=== PATIENT | female | born 1940 | race Caucasian/White ===

== ENCOUNTER 2017-11-11 10:12 | Outpatient (CLI) | payer MEDICARE, OTHER, SELFPAY ==
[2017-11-11 12:23] LABS: Anion Gap 3.5 mmol/L (3-11); BUN 19 mg/dL (7-18); CO2 31.5 mmol/L (21.0-32.0); CREATININE 0.54 mg/dL (0.55-1.02); Calcium 9.1 mg/dL (8.5-10.1); Chloride 107 mmol/L (98-107); Glucose 83 mg/dL (70-100); Potassium 4.4 mmol/L (3.5-5.1); Sodium 142 mmol/L (136-145); TSH 0.05 uIU/mL (0.358-3.74)
== END 2017-11-11 10:32 ==
LOC: LBO 12:09 → LOS 12:45
PROVIDERS: PCP Family Medicine; Visit Provider Family Medicine
DX: I10 Essential (primary) hypertension (principal); E03.9 Hypothyroidism, unspecified
CPT/HCPCS: 36415; 80048; 84443

== ENCOUNTER 2018-07-11 02:45 | Outpatient (CLI) | payer MEDICARE, OTHER, SELFPAY ==
[2018-07-11 13:08] LABS: Anion Gap 9.8 mmol/L (3-11); BUN 25 mg/dL (7-18); CO2 28.2 mmol/L (21.0-32.0); Calcium 9.6 mg/dL (8.5-10.1); Chloride 105 mmol/L (98-107); Glucose 82 mg/dL (70-100); Potassium 4.3 mmol/L (3.5-5.1); Sodium 143 mmol/L (136-145); TSH 0.15 uIU/mL (0.358-3.74)
== END 2018-07-11 03:05 ==
PROVIDERS: PCP Family Medicine; Visit Provider Family Medicine
DX: I10 Essential (primary) hypertension (principal); E03.9 Hypothyroidism, unspecified
CPT/HCPCS: 36415; 80048; 84443

== ENCOUNTER → 2018-09-19 10:01 | Outpatient (BNVA) | payer MEDICARE, OTHER, SELFPAY | PROVIDERS: PCP Family Medicine; Referring Provider Family Medicine; Visit Provider Psychiatry & Neurology Neurology | DX: G35 Multiple sclerosis (principal); R41.3 Other amnesia; I10 Essential (primary) hypertension | CPT/HCPCS: 99205; 99214 ==

== ENCOUNTER 2018-09-28 06:57 | Outpatient (CLI) | payer MEDICARE, OTHER, SELFPAY ==
--- NOTE | 2018-09-28 15:15 | DI.MRI_ITS ---
SYMPTOM/DIAGNOSIS: MEMORY LOSS, NEW LT HH, G35. MS MRI BRAIN: Comparison is made with head CT 05 June 2008 T2 sagittal, T1, T2, FLAIR, Diffusion and gradient echo axial and Flair sagittal sequences were performed. There is moderate to severe diffuse cerebral atrophy. There are multiple high signal foci in the periventricular white matter which could be secondary to multiple sclerosis vs small vessel changes. A larger lesion is seen posterior to the left lateral ventricle is more suspicious for multiple sclerosis plaque. Several of the foci show restricted diffusion, most apparent in the right frontal lobe. IMPRESSION: Numerous small bilateral periventricular and white matter lesions is consistent with the patient's history of multiple sclerosis.
== END 2018-09-28 07:17 ==
PROVIDERS: PCP Family Medicine; Visit Provider Psychiatry & Neurology Neurology
DX: G35 Multiple sclerosis (principal); R41.3 Other amnesia
CPT/HCPCS: 70551

== ENCOUNTER 2019-05-03 03:31 | Outpatient (CLI) | payer MEDICARE, OTHER, SELFPAY ==
[2019-05-04 16:08] LABS: T3,Free 4.5 pg/mL (2.8-5.3)
== END 2019-05-03 03:51 ==
PROVIDERS: PCP Family Medicine; Visit Provider Family Medicine
DX: E03.9 Hypothyroidism, unspecified (principal); I10 Essential (primary) hypertension
CPT/HCPCS: 36415; 84481

== ENCOUNTER 2020-01-28 03:34 | Outpatient (CLI) | payer MEDICARE, OTHER, SELFPAY ==
[2020-01-28 14:08] LABS: Anion Gap 5.1 mmol/L (3-11); BUN 22 mg/dL (7-18); CO2 31.9 mmol/L (21.0-32.0); CREATININE 0.64 mg/dL (0.55-1.02); Calcium 9.4 mg/dL (8.5-10.1); Chloride 106 mmol/L (98-107); Glucose 107 mg/dL (74-106); Potassium 3.9 mmol/L (3.5-5.1); Sodium 143 mmol/L (136-145)
[2020-01-28 14:20] LABS: TSH (W/Ref FT4) 0.01 uIU/mL (0.36-3.74)
== END 2020-01-28 03:54 ==
PROVIDERS: Family Medicine; PCP Family Medicine; Visit Provider Family Medicine
DX: E03.9 Hypothyroidism, unspecified (principal); I10 Essential (primary) hypertension
CPT/HCPCS: 36415; 80048; 84439; 84443

== ENCOUNTER 2021-01-28 11:38 | Inpatient (IN) | payer MEDICARE, OTHER, SELFPAY ==
[2021-01-28] VITALS (15 sets, daily range): BP systolic 139–166; BP diastolic 65–87; PULSE 72–86; RESP 14–20; TEMP 36.3–37.2; O2SAT 97–99
--- NOTE | 2021-01-28 12:00 | DI.RAD_ITS ---
Exam(s) XR PORTABLE CHEST AP EXAM: XR PORTABLE CHEST AP CLINICAL HISTORY: cough TECHNIQUE: COMPARISON: CR CHEST 2 VIEWS PA,LAT from 08/25/2016 FINDINGS: There is a right convex thoracic scoliosis. Cardiac size is at the upper limits normal. Lungs appea r grossly clear. No pleural effusion seen on this frontal film. IMPRESSION: No evidence of acute process. RADIATION DOSE DELIVERED: Total DLP
[2021-01-28 12:20] LABS: Abs Immature Grans 0.03 10^3/uL (0.0-0.06); Absolute Basophil Count 0.03 10^3/uL (0.0-0.2); Absolute Eosinophil Count 0.02 10^3/uL (0.0-0.7); Absolute Lymphocyte Count 0.65 10^3/uL (1.2-3.4); Absolute Neutrophil Count 8.95 10^3/uL (1.2-6.7); Basophils % 0.3; Eosinophils % 0.2; HCT 43.3 % (36.0-46.0); Immature Grans % 0.3; Lymphocytes % 6.3; MCH 29.1 pg (27.0-33.0); MCV 96.9 fL (80-95); MPV 11.8 fL (8.0-11.0); Monocytes % 6.7; Neutrophils % 86.2; Nucleated RBC 0 %; Platelet Count 166 10^3/uL (130-400); RBC 4.47 10^6/uL (3.93-5.22); RDW 13.9 % (11.7-14.6); RDW-SD 50.3 fL; WBC 10.38 10^3/uL (4.4-10.8)
--- NOTE | 2021-01-28 12:27 | ED.GENADUL_ITS ---
Discharge Plan Disposition Patient Disposition: [facility] INPATIENT Condition: Serious Discharge Details Chief Complaint: RespSymp Clinical Impression: Multiple sclerosis exacerbation Primary Care Provider: Karl Laird ED Provider: Alvaro La Home Meds and New Rx's Prescriptions: No Action aspirin [Aspir-81] 81 MG tablet,delayed release (DR/EC) 81 mg PO DAILY RF: 0 escitalopram oxalate [Lexapro] 10 mg tablet 10 mg PO DAILY Qty: 90 RF: 4 levothyroxine 50 mcg tablet 50 mcg PO DAILY Qty: 90 RF: 4 trazodone 50 mg tablet 25 - 50 mg PO QHS PRN (Reason: insomnia) Qty: 30 RF: 1 Medical Decision Making 1245 --80-year-old female with history of MS, chronic dysphagia, here with increased respiratory secretions and respiratory symptoms for the past week. Patient has poor respiratory effort. Concern for progression of MS. Consider pneumonia. Plan to check chest x-ray. --Chest x-ray was reviewed and interpreted by radiology: No acute pulmonary disease. Labs reviewed and nondiagnostic. Considered acute neurologic hemorrhage. CT head interpreted radiology is negative. Lengthy conversation with the patient's son about treatment plan. He initially was interested in taking his mother home but is now agreeable to admission for IV steroid treatment of likely MS flare. Initial dose of 1000 mg methylprednisolone was administered in the ED. I called and spoke with Dr. Simon, on-call hospitalist, discussed ED presentation course, he will admit the patient. Care transitioned to hospitalist service HPI General Mode of arrival: ambulatory . Date/Time Provider Initiated Documentation: 01/28/21 11:53 . Limitations to Documentation: altered mental status . Information obtained by: family . HPI Narrative: 80yo f with history of multiple sclerosis, physical deconditioning, dysphagia, hypertension, here with her son with concern for respiratory illness. Patient unable to provide history. Son notes respiratory symptoms for the past 3 days. Chronic dysphagia with difficulty swallowing and speaking. Son notes congestion and difficulty handling secretions. He is concerned about potential pneumonia. She does not have much respiratory effort or ability to cough. She notes associated increased fatigue and lethargy. She is fully vaccinated for Covid and received boosters on Tuesday. Related Data Home Medications Medication Instructions Recorded Confirmed aspirin [Aspir-81] 81 mg PO DAILY tab-cap 05/11/12 01/28/21 escitalopram oxalate 10 mg tablet 10 mg PO DAILY #90 tab-cap 09/24/20 01/28/21 levothyroxine 50 mcg tablet 50 mcg PO DAILY #90 tab-cap 10/27/20 01/28/21 trazodone 50 mg tablet 25 - 50 mg PO QHS PRN #30 tab 12/09/20 01/28/21 Previous Rx's Medication Instructions Recorded escitalopram oxalate 10 mg tablet 10 mg PO DAILY #90 tab-cap 09/24/20 levothyroxine 50 mcg tablet 50 mcg PO DAILY #90 tab-cap 10/27/20 trazodone 50 mg tablet 25 - 50 mg PO QHS PRN #30 tab 12/09/20 Allergies Allergy/AdvReac Type Severity Reaction Status Date / Time No Known Allergies Allergy Verified 01/28/21 11:54 General Stated Complaint: RespSymp DAYANARA: 3 Review of Systems Unobtainable due to mental status Constitutional Constitutional: Reports fatigue ENT Ears, Nose, Mouth, and Throat: Reports as per HPI Respiratory Respiratory: Reports as per HPI Endocrine Endocrine: Reports fatigue [facility] Active Problem List Pressure sore of hip, right, unstageable (Acute) Physical deconditioning (Acute) Abnormal auditory perception (Acute) Sensory hearing loss, bilateral (Acute) Multiple sclerosis (Acute) Dysphagia, neurologic (Acute) Hypothyroidism (Acute) Essential hypertension (Acute 03/19/13) Polyp of colon (Acute) History of blood transfusion (Acute) Depressive disorder (Acute) Memory loss (Acute) Medical History Atelectasis of left lung Cerumen impaction Choking due to foreign body Surgical History S/P neck surgery, follow-up exam Total replacement of hip (~09/2010) transfusion (~1992) Family History Mother , 93 Essential hypertension Father , 96 No problems noted. Maternal Grandfather , 80 No problems noted. Paternal Grandfather , 80 No problems noted. Maternal Grandmother , 92 Cancer Paternal Grandmother , 85 No problems noted. Son Heart disease Son No problems noted. Son No problems noted. Brother , age 74 No problems noted. Social History Smoking/Tobacco Use Status: Former Tobacco Use Quit Date: 03/07/1959 Tobacco: How many years used: 2 Smoking risk assessment performed?: Yes Alcohol Intake: current Alcohol Intake frequency: 0-2 drinks per day Alcohol type: beer and wine Drug use: Never Substance use type: does not use Counseling provided: none Caregiver/Support person: Yes Household members: spouse Communication Needs: Corrective Lenses Do you need help understanding health information?: Rarely Pets and animals: Yes Sexually active: No Do you think of yourself as: straight/heterosexual Current gender identity: female and decline to answer What is your relationship status?: How often do you talk on the phone with friends or family?: once per week How often do you get together with friends or relatives?: decline to answer How often do you attend mu-ism or jain services?: decline to answer Do you belong to any clubs or organized social groups?: decline to answer Panel score (0-1 are the most socially isolated patients): 1 What type of physical activity do you participate in: decline to answer Duration: decline to answer Frequency: decline to answer Arline/Church: No preference Special arline needs: No Seatbelt use: always Helmet use: No Drive intox or ride w/intox 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 Do you feel safe in your relationship?: Yes Exam Const General: no acute distress Nutritional Appearance: cachectic HENMT Head: atraumatic Mouth: moist mucous membranes Eyes Conjunctivae: normal conjunctivae Sclera: normal sclerae Neck Neck: trachea midline and supple Resp Effort & Inspection: no cough and decreased respiratory effort Auscultation: rhonchi Cardio Jugular venous pressure: no JVD Rate: regular rate and not tachycardic Rhythm: regular rhythm GI Palpation: soft, not firm, no guarding, no masses, not rigid and nontender Skin General skin exam: no rashes or lesions noted Neuro General: not alert, patient awake and tone normal Cranial Nerves: individual cranial nerve findings Cognition: abnormal cognition (lethargy) Other: Unable to elevate palate, generally weak Extrem General: no edema Psych Appearance: grossly normal Mental Status: mental status grossly normal Course Vital Signs Vital signs: Vital Signs Temperature 37.2 C 01/28/21 11:50 Pulse 76 01/28/21 11:50 Respiratory Rate 16 01/28/21 11:50 Blood Pressure 139/65 01/28/21 11:50 Pulse Oximetry 99 01/28/21 11:50 Temperature 37.2 C 01/28/21 11:50 Temperature Source Oral 01/28/21 11:50 Pulse 76 01/28/21 11:50 Respiratory Rate 16 01/28/21 11:50 Respiratory Effort Non-Labored 01/28/21 11:55 Respiratory Depth Normal 01/28/21 11:55 Blood Pressure 139/65 01/28/21 11:50 Blood Pressure Position Sitting 01/28/21 11:50 Pulse Oximetry 99 01/28/21 11:50 Oxygen Delivery Method Room Air 01/28/21 11:50 Oxygen Flow Rate 0 01/28/21 11:50 Lab/Test Results Lab/Test Results: 01/28/21 11:58 Blood Blood Culture - Pending 01/28/21 11:58 Blood Blood Culture - Pending Laboratory Tests Range/Units 01/28/21 12:10 WBC (4.4-10.8) 10^3/uL 10.38 RBC (3.93-5.22) 10^6/uL 4.47 Hgb (11.2-15.7) g/dL 13.0 Hct (36.0-46.0) % 43.3 MCV (80-95) fL 96.9 H MCH (27.0-33.0) pg 29.1 MCHC (32.0-36.0) % 30.0 L RDW (11.7-14.6) % 13.9 Plt Count (130-400) 10^3/uL 166 MPV (8.0-11.0) fL 11.8 H Immature Gran % 0.3 Neutrophils % 86.2 Lymphocytes % 6.3 Monocytes % 6.7 Eosinophils % 0.2 Basophils % 0.3 Nucleated RBC % % 0 Absolute Neutrophils (1.2-6.7) 10^3/uL 8.95 H Absolute Lymphocytes (1.2-3.4) 10^3/uL 0.65 L Absolute Monocytes (0.1-0.8) 10^3/uL 0.70 Absolute Eosinophils (0.0-0.7) 10^3/uL 0.02 Absolute Basophils (0.0-0.2) 10^3/uL 0.03 PAWSS Have you Been Recently Intoxicated or Drunk Within the Last 30 days?: No Have you Ever Experienced Previous Episodes of Alcohol Withdrawal?: No Have you ever Experienced Withdrawal Seizures?: No Have you ever Experienced Delirium Tremens(DT)s?: No Have you ever undergone Alcohol Rehabilitation Treatment (i.e, inpt ot outpatient treatment programs)?: No Have you ever Experienced Blackouts?: No Have you ever Combined Alcohol with other Downers within the last 90 days?: No Have you ever Combined Alcohol with any other Substance of Abuse during the last 90 days?: No Positive Blood Alcohol level on Presentation? [PCS.BAL]: No Evidence of Increased Autonomic Activity (i.e. HR>120, tremor, sweating, agitation, nausea)?: No Result: 0
[2021-01-28 12:41] LABS: ALT 51 U/L (14-59); AST 26 U/L (15-37); Albumin 3.3 g/dL (3.4-5.0); Alkaline Phosphatase 184 U/L (46-116); BUN 21 mg/dL (7-18); Bilirubin, Total 0.8 mg/dL (0.2-1.0); CREATININE 0.5 mg/dL (0.55-1.02); Chloride 103 mmol/L (98-107); Glucose 118 mg/dL (74-106); Potassium 3.7 mmol/L (3.5-5.1); Sodium 140 mmol/L (136-145); Total Protein 7.4 g/dL (6.4-8.2); Troponin I < 0.05 ng/mL (<0.06)
[2021-01-28 12:50] LABS: Bilirubin Negative (Negative); Blood Moderate (Negative); Clarity Cloudy (Clear); Glucose Negative (Negative); Ketones 15 mg/dL (Negative); Leukocyte Esterase Negative (Negative); Nitrite Negative (Negative); Specific Gravity >= 1.030 (1.005-1.025); pH 6.5 (5-8)
[2021-01-28 12:58] LABS: Bacteria Many HPF (Negative); C & S Indicated? No/Sq. Contamination; Casts Negative LPF (Negative); Crystals Negative HPF (Negative); Epithelial Cells Many HPF (Negative); Mucus Trace (Negative); WBC 0-2 HPF (0-5)
--- NOTE | 2021-01-28 14:30 | DI.CT_ITS ---
Exam(s) CT HEAD WO EXAM: CT HEAD WO CLINICAL HISTORY: altered mentation. TECHNIQUE: Imaging Protocol: Axial computed tomography images with coronal and sagittal reformatted images were created and reviewed COMPARISON: CT FACIAL WITHOUT CONTRAST from 06/05/2008 FINDINGS: There is moderate generalized cerebral atrophy and there are patchy areas of decreased attenuation i n periventricular white matter consistent with microvascular ischemic changes. No evidence of acute intracranial hemorrhage, mass effect, or midline shift. The orbital structures are unremarkable. The temporal bone structures appear intact. Calvarium: Normal. Visualized Paranasal sinuses/Mastoids: Clear. IMPRESSION: No evidence of acute intracranial process.. RADIATION DOSE DELIVERED: 640.6mGy.cm Total DLP 640.6mGy.cm Total DLP 33.31mGy CTDIvol DATA REPOSITORY: All CT scans at this facility are submitted to the National Radiology Data Registry (NRDR) Dose Index Registry (DIR) with the [employer] (ACR). RADIATION OPTIMIZATION: All CT scans at this facility use at least one of these dose optimization te chniques: automated exposure control; mA and/or kV adjustment per patient size (includes targeted exa ms where dose is matched to clinical indication); or iterative reconstruction.
[2021-01-28 14:50] LABS: Source Nasal/Nares
[2021-01-28 16:37] LABS: TSH < 0.01 uIU/mL (0.36-3.74)
--- NOTE | 2021-01-28 17:00 | W.SPSTE ---
Date of service: 01/28/21 Time of Service: 17:00 Subjective Patient referred for Clinical Swallow Evaluation from Dr. iSmon given MS exacerbation with known baseline chronic dysphagia. Patient received alert/awake agreeable to evaluation, unable to communicate wants/needs effectively; unable to demonstrate comprehension of recommendations for safe p.o. intake upon discharge once deemed medically stable. Objective Objective Precautions: Fall, aspiration HPI: Pt is a 80 year old F admitted with suspected MS flare/exacerbation, increased respiratory congestion and poor secretion management as well as increased fatigue. At baseline patient with chronic dysphagia and dysarthria. Medical history also significant for multiple sclerosis, physical deconditioning, dysphagia, memory loss. Active Problem List Pressure sore of hip, right, unstageable (Acute) Physical deconditioning (Acute) Abnormal auditory perception (Acute) Sensory hearing loss, bilateral (Acute) Multiple sclerosis (Acute) Dysphagia, neurologic (Acute) Hypothyroidism (Acute) Essential hypertension (Acute 03/19/13) Polyp of colon (Acute) History of blood transfusion (Acute) Depressive disorder (Acute) Memory loss (Acute) Medical History Atelectasis of left lung Cerumen impaction Choking due to foreign body Surgical History S/P neck surgery, follow-up exam Total replacement of hip (~09/2010) transfusion (~1992) Social History/Home Situation: Pt lives with spouse. Son is involved in her care. Predisposing dysphagia risk factors: MS Clinical signs of possible chronic dysphagia: suspect poor PO intake Precipitating dysphagia risk factors / triggering event: increased respiratory congestion, difficulty managing secretions, increased weakness, suspected MS flare. EXAM: Temp: 97.3 F Sp02: 97% RR: 18 / room air Cranial nerve exam / Oral Motor: Patient largely unable to follow instructions ? very limited exam. Improved with demonstration (imitating). Noting the following: Intact dentition and good oral care appearance. Palate elevates symmetrically to phonation. Unable to elicit volitional cough or swallow. Language: Unable to follow many instructions but does follow simple instructions. Improves with visual and written reinforcement. Consistently able to respond with Yes/No board, reads single words. Hearing: Suspect NATIVE. I can't understand Mental Status: Unable to assess given limited verbal expression/dysarthria and poor auditory comprehension/NATIVE. Speech: dysarthric ? very strained/spaastic voice quality, imprecise articulation, monotone/loudness. Short breath groups. Slowed speech. ~40% intelligible, especially worse at end of utterance (respiratory support and articulatory fatigue). Food items tested: [ ] None. Further swallow assessment not warranted at this time. [X] Ice: x2 [X] IDDSI 0: x3 tsp [ ] IDDSI 1: [ ] IDDSI 2: [ ] IDDSI 3: [X] IDDSI 4: tsp x2 [ ] IDDSI 5: [ ] IDDSI 6: [ ] IDDSI 7: [ ] Pill/tablet: Oral phase: NOTING IMPULSIVE, swallowing whole ice chips despite instructions. Unable to perform oral hold/preparatory set. [ ] WFL [ ] Leakage from mouth [X] Difficulty with bolus manipulation [X] Difficulty with a-p transport [ ] Difficulty chewing ? NOT TESTED [ ] Pocketing [ ] Residue Pharyngeal phase: [ ] WFL [X] Delayed swallow initiation [X] Reduced hyolaryngeal elevation/excursion [X] Cough after swallow ? DIFFICULT TO ASSESS GIVEN BASELINE COUGH & CONGESTION [X] Voice change after swallow [ ] Throat clearing [ ] Endorsed stasis Yaneli Swallow Protocol: DID NOT PERFORM Assessment SWALLOW IMPRESSIONS: Patient is at significantly heightened risk for aspiration-related pulmonary complication, given presumed reduced pulmonary function, severe deconditioning and weakness, likely moderate or severe, acute on chronic, pharyngeal>oral dysphagia with hx head/neck surgery, and questionable mental status. Improvements in physical mobility and overall pulmonary function likely to further reduce this risk. Cannot rule out aspiration at this time given severity of symptoms and difficulty differentiating baseline respiratory congestion from possible overt s/sx aspiration. Unless there is improvement in her overall status, recommend Palliative consult as well as discussion with medical team and family/caregivers regarding goals of care as relates to deglutition. If safety goals take priority, recommend transfer to another facility in order to perform MBSS prior to commencing PO diet ? at this time our facility is unable to accommodate patients who cannot sit upright or stand on their own. If comfort goals take priority, [employer] would be able to provide family/caregiver training regarding safest possible PO intake with the understanding that eliminating risk of aspiration/choking is unlikely at this time given severity. Prognosis guarded given patients overall deconditioning, severity, age, mental status at this time. May improve if medical condition improves. Communication: patient benefits from visual cues, demonstration, and written reinforcement of verbal communication. She is able to use healthcare picture communication board with assistance/cueing and can point to YES/NO options consistently with short, simple, concrete questions. Providers should confirm their understanding of her verbal communication by writing keywords and asking for confirmation, or cueing her to point to picture board. She does attempt verbal communication in short sentences but can be quite difficult to understand. Further [employer] services warranted at this time. If STRICT ORAL CARE is performed immediately before, recommend small TSPS cold water for oral comfort as recommended below. Provided education to RN re: communication recommendations, anatomy/physiology of swallowing mechanism, overt s/sx to monitor for re: potential aspiration of food liquids, recommendations for improved oral care, [relationship between respiratory function changes and deglutition] Instrumentation: N/A - RECOMMENDATIONS: NPO pending discussion with patient/POA/family/palliative care FOR ORAL COMFORT, MAY PROVIDE SMALL SIPS OF WATER WITH RN FOLLOWS: No more than 4-5 tsps water at a time every 2-3 hrs Oral care must be completed prior on all structures/soft tissues with friction. Recommend use of inline suction oral care kits for ease given patient unable to follow instructions and limited mobility. STOP if coughing, wet voice, increased shortness of breath Must be bolt upright for PO intake and awake/alert, stable respiratory. If family wishes to commence comfort feeds, recommend PUREE/EXTREMELY THICK consistency (e.g., pudding) following similar guidelines above for tsps water, as well as strict oral care before/after PO intake. [employer] will conduct continued re-evaluation for safest possible PO intake pending family goals. COMMUNICATION: - Encourage use of Yes/No board and healthcare picture board. Patient is not always consistent with nodding/shaking head. - Confirm understanding of patient's utterances using written keywords, Y/N questions - ENsure patient is looking at you , ask short/simple/concrete questions. Specialist referrals: Neurology, palliative Ancillary tests: MBSS at another facility if in line with goals of care Discharge: Pending goals of care, recommend discharge to facility with [employer] service on-site. Plan [employer] to follow while on unit up to 4-5x weekly. Plan to return to assess patient on TUESDAY, 01/30. Plane Captain Goals: = SHORT TERM GOALS, FOR NOW 1. Patient/family/caregivers will demonstrate understanding of education regarding role of [employer], impact of MS on swallow function, relationship between respiration and deglutition, and patient's current swallow function and level of risk and related recommendations. 2. Patient/family/caregivers will demonstrate understanding of AAC and communication recommendations and strategies. Fiona Segura, [phone] Speech Language Pathologist [employer] CPT Code: 60733 Clinical Swallowing Evaluation Time spent: 45 minutes. Coding
[2021-01-28] MEDS: Enoxaparin 40 MG/0.4 ML SYR SC (17:47)
[2021-01-28] MEDS: Lactated Ringers 1,000 ML 80 ML IV (19:12)
--- NOTE | 2021-01-28 19:56 | HPE_ITS ---
Date of service: 01/28/21 Time of Service: 19:56 Assessment and Plan Assessment and plan (1) Multiple sclerosis exacerbation: Status: Acute Assessment and plan: Manifested by increased dysphagia, weak cough with difficulty clearing oral-pharyngeal secretions. Solumedrol 1g IV given in ED; repeat daily for 3-5 days; watching for improvement. Will d/w neurology at [facility] (2) Dysphagia, neurologic: Status: Acute Assessment and plan: Chronic and worsening recently. states she eats regular food cut into small pieces. No choking noted per . Speech therapy consulted for swallow evaluation. (3) Hypothyroidism: Status: Acute Assessment and plan: On levothyroxine. Given TSH below limits of detection, will hold levothyroxine. (4) Essential hypertension: Status: Acute Assessment and plan: SBP 118-166; mostly above 140 since admission On no antihypertensives. Monitor (5) Sacral decubitus ulcer: Status: Acute Assessment and plan: R sacral stage II R proximal lateral thigh ulceration. Wound care nurse has seen patient and will treat; includes repositioning measures. (6) Failure to thrive: Status: Acute Assessment and plan: Cachectic with wt of 39 kg. Nutrition consulted, Longstanding dysphagia. Pts stated she eats like a horse. Speech consulted. History of Present Illness History of Present Illness Chief Complaint: Chest congestion and fatigue Narrative: This is a 80 yo female with history of multiple sclerosis, physical deconditioning, dysphagia, cachexia, hypertension. She was brought to the ED by her son with concern for respiratory illness. Patient unable to provide history. Son notes respiratory symptoms for the past 3 days; chest congestion and difficulty handling her secretions. She has also been noted to be more fatigued. Chronic dysphagia with difficulty swallowing and speaking. She does not have much respiratory effort or ability to cough. She is fully vaccinated for Covid and received a booster on the previous Tuesday. WBC count normal. Afebrile. Lytes normal. BUN 21. Creatinine 0.5. Glucose 118. TSH <0.01. CXR w/o acute findings. CT head w/o acute processes. Dxd with likely multiple sclerosis flare and given 1g IV solu-medrol. Admitted for further steroids and evaluation. Review of Systems All systems reviewed & are unremarkable except as noted in HPI and below (Obtained by son and ) [facility] Active Problem List Pressure sore of hip, right, unstageable (Acute) Physical deconditioning (Acute) Abnormal auditory perception (Acute) Sensory hearing loss, bilateral (Acute) Multiple sclerosis (Acute) Dysphagia, neurologic (Acute) Hypothyroidism (Acute) Essential hypertension (Acute 03/19/13) Polyp of colon (Acute) History of blood transfusion (Acute) Depressive disorder (Acute) Memory loss (Acute) Medical History Atelectasis of left lung Cerumen impaction Choking due to foreign body Surgical History S/P neck surgery, follow-up exam Total replacement of hip (~09/2010) transfusion (~1992) Family History Mother , 93 Essential hypertension Father , 96 No problems noted. Maternal Grandfather , 80 No problems noted. Paternal Grandfather , 80 No problems noted. Maternal Grandmother , 92 Cancer Paternal Grandmother , 85 No problems noted. Son Heart disease Son No problems noted. Son No problems noted. Brother , age 74 No problems noted. Social History Smoking/Tobacco Use Status: Former Tobacco Use Quit Date: 03/07/1959 Tobacco: How many years used: 2 Smoking risk assessment performed?: Yes Alcohol Intake: current Alcohol Intake frequency: 0-2 drinks per day Alcohol type: beer and wine Drug use: Never Substance use type: does not use Counseling provided: none Caregiver/Support person: Yes Household members: spouse Communication Needs: Corrective Lenses Do you need help understanding health information?: Rarely Pets and animals: Yes Sexually active: No Do you think of yourself as: straight/heterosexual Current gender identity: female and decline to answer What is your relationship status?: How often do you talk on the phone with friends or family?: once per week How often do you get together with friends or relatives?: decline to answer How often do you attend sabianist or catholic services?: decline to answer Do you belong to any clubs or organized social groups?: decline to answer Panel score (0-1 are the most socially isolated patients): 1 What type of physical activity do you participate in: decline to answer Duration: decline to answer Frequency: decline to answer Arline/Jain: No preference Special arline needs: No Seatbelt use: always Helmet use: No Drive intox or ride w/intox ice delivery driver: No Do you feel safe in your relationship?: Yes Meds Allergies and Home Medications Allergies Allergy/AdvReac Type Severity Reaction Status Date / Time No Known Allergies Allergy Verified 01/28/21 11:54 Home Medications Medication Instructions Recorded Confirmed Type aspirin [Aspir-81] 81 mg PO DAILY tab-cap 05/11/12 01/28/21 History escitalopram oxalate 10 mg tablet 10 mg PO DAILY #90 tab-cap 09/24/20 01/28/21 Rx levothyroxine 50 mcg tablet 50 mcg PO DAILY #90 tab-cap 10/27/20 01/28/21 Rx trazodone 50 mg tablet 25 - 50 mg PO QHS PRN #30 tab 12/09/20 01/28/21 Rx Exam Narrative Exam Narrative: Frail, cachectic appearing. Const General: no acute distress, frail appearing and lethargic Nutritional Appearance: cachectic Orientation: other (Opens eyes and intermittently will mumble / whisper a word or two.) [facility] Head: normocephalic, no Carballo's sign and no contusions Eyes General: appearance normal, both eyes and all related structures Sclera: sclerae normal Neck Neck: supple and no JVD Resp Effort & Inspection: normal respiratory effort Auscultation: clear to auscultation bilaterally Cardio Rate: regular rate Rhythm: regular rhythm Heart Sounds: S1 normal and S2 normal GI Palpation: soft and nontender Auscultation: normal bowel sounds Skin General skin exam: no rashes or lesions noted and decreased turgor Neuro General: no focal motor deficits Cranial Nerves: facial strength normal Extrem General: no pedal edema and no calf tenderness Results Labs Result diagrams: 01/28/21 12:10 01/28/21 12:10 Labs: Laboratory Results - last 24 hr 01/28/21 01/28/21 01/28/21 12:10 12:10 12:10 WBC 10.38 RBC 4.47 Hgb 13.0 Hct 43.3 MCV 96.9 H MCH 29.1 MCHC 30.0 L RDW 13.9 Plt Count 166 MPV 11.8 H Immature Gran % 0.3 Neutrophils % 86.2 Lymphocytes % 6.3 Monocytes % 6.7 Eosinophils % 0.2 Basophils % 0.3 Nucleated RBC % 0 Absolute Neutrophils 8.95 H Absolute Lymphocytes 0.65 L Absolute Monocytes 0.70 Absolute Eosinophils 0.02 Absolute Basophils 0.03 Sodium 140 Potassium 3.7 Chloride 103 Carbon Dioxide 30.0 Anion Gap 7.0 BUN 21 H Creatinine 0.5 L Estimated GFR/1.73 m2 >= 60.00 Glucose 118 H Calcium 9.0 Total Bilirubin 0.8 AST 26 ALT 51 Alkaline Phosphatase 184 H Troponin I < 0.05 Total Protein 7.4 Albumin 3.3 L TSH < 0.01 L Urine Color Urine Clarity Urine pH Ur Specific [place] Urine Protein Urine Ketones Urine Blood Urine Nitrite Urine Bilirubin Urine Urobilinogen Ur Leukocyte Esterase Urine RBC Urine WBC Ur Epithelial Cells Urine Crystals Urine Bacteria Urine Casts Urine Mucus Ur Culture Indicated? Urine Glucose COVID-19 Source 01/28/21 01/28/21 12:42 14:45 WBC RBC Hgb Hct MCV MCH MCHC RDW Plt Count MPV Immature Gran % Neutrophils % Lymphocytes % Monocytes % Eosinophils % Basophils % Nucleated RBC % Absolute Neutrophils Absolute Lymphocytes Absolute Monocytes Absolute Eosinophils Absolute Basophils Sodium Potassium Chloride Carbon Dioxide Anion Gap BUN Creatinine Estimated GFR/1.73 m2 Glucose Calcium Total Bilirubin AST ALT Alkaline Phosphatase Troponin I Total Protein Albumin TSH Urine Color Yellow Urine Clarity Cloudy Urine pH 6.5 Ur Specific [place] >= 1.030 H Urine Protein Negative Urine Ketones 15 H Urine Blood Moderate H Urine Nitrite Negative Urine Bilirubin Negative Urine Urobilinogen 1.0 H Ur Leukocyte Esterase Negative Urine RBC 10-20 H Urine WBC 0-2 Ur Epithelial Cells Many Urine Crystals Negative Urine Bacteria Many Urine Casts Negative Urine Mucus Trace Ur Culture Indicated? No/Sq. Contamination Urine Glucose Negative COVID-19 Source Nasal/Nares Last Vital Signs Temp 36.3 C L 01/28/21 16:46 Pulse 77 01/28/21 16:46 Resp 18 01/28/21 16:46 BP 158/87 H 01/28/21 16:46 Pulse Ox 97 01/28/21 16:46 PAWSS Have you Been Recently Intoxicated or Drunk Within the Last 30 days?: No Have you Ever Experienced Previous Episodes of Alcohol Withdrawal?: No Have you ever Experienced Withdrawal Seizures?: No Have you ever Experienced Delirium Tremens(DT)s?: No Have you ever undergone Alcohol Rehabilitation Treatment (i.e, inpt ot outpatient treatment programs)?: No Have you ever Experienced Blackouts?: No Have you ever Combined Alcohol with other Downers within the last 90 days?: No Have you ever Combined Alcohol with any other Substance of Abuse during the last 90 days?: No Positive Blood Alcohol level on Presentation? [PCS.BAL]: No Evidence of Increased Autonomic Activity (i.e. HR>120, tremor, sweating, agitation, nausea)?: No Result: 0
[2021-01-28 20:23] LABS: COVID-19 PCR Negative (Negative)
[2021-01-28 20:55] LABS: Magnesium 2.2 mg/dL (1.8-2.4)
[2021-01-29 00:03] VITALS: BP 133/80; PULSE 81; RESP 17; TEMP 36.1; O2SAT 94
[2021-01-29] MEDS: traZODone 50 MG TAB PO ×2 (04:20→22:52)
[2021-01-29 05:39] LABS: Abs Immature Grans 0.02 10^3/uL (0.0-0.06); Absolute Lymphocyte Count 0.45 10^3/uL (1.2-3.4); Absolute Monocyte Count 0.09 10^3/uL (0.1-0.8); Absolute Neutrophil Count 5.39 10^3/uL (1.2-6.7); HCT 34.8 % (36.0-46.0); HGB 10.9 g/dL (11.2-15.7); Immature Grans % 0.3; Lymphocytes % 7.6; MCH 29.4 pg (27.0-33.0); MCHC 31.3 % (32.0-36.0); MCV 93.8 fL (80-95); MPV 11.9 fL (8.0-11.0); Monocytes % 1.5; Neutrophils % 90.6; Nucleated RBC 0 %; Platelet Count 159 10^3/uL (130-400); RBC 3.71 10^6/uL (3.93-5.22); RDW 13.5 % (11.7-14.6); WBC 5.95 10^3/uL (4.4-10.8)
[2021-01-29 05:49] LABS: Anion Gap 7.9 mmol/L (3-11); BUN 23 mg/dL (7-18); CO2 27.1 mmol/L (21.0-32.0); CREATININE 0.5 mg/dL (0.55-1.02); Calcium 8.5 mg/dL (8.5-10.1); Chloride 105 mmol/L (98-107); Glucose 121 mg/dL (74-106); Potassium 3.5 mmol/L (3.5-5.1); Sodium 140 mmol/L (136-145)
[2021-01-29] MEDS: Lactated Ringers 1,000 ML 80 ML IV ×2 (05:50→19:55)
[2021-01-29 08:29] VITALS: BP 94/56; PULSE 60; RESP 18; TEMP 36.4; O2SAT 96
[2021-01-29] MEDS: Escitalopram 10 MG TAB PO (08:48)
[2021-01-29] MEDS: Normal Saline Flush 10 ML SYR IVP (08:49)
[2021-01-29] MEDS: Aspirin E.C. 81 MG TABEC PO (08:49)
--- NOTE | 2021-01-29 10:32 | PGE_ITS ---
Date of Service Date of service: 01/29/21 Time of Service: 10:32 Assessment and Plan Assessment and plan (1) Multiple sclerosis exacerbation: Status: Acute Assessment and plan: Manifested by increased dysphagia, weak cough with difficulty clearing oral-pharyngeal secretions. Solumedrol 1g IV given in ED; repeat daily for 3-5 days; watching for improvement. Speech evaluation appreciated. Initiate pureed diet with very thick liquids. Improving; now alert and engages in conversation. She has taken pills this AM w/o difficulty. (2) Dysphagia, neurologic: Status: Acute Assessment and plan: Chronic and worsening recently. states she eats regular food cut into small pieces. No choking noted per . Speech therapy consulted; see above (3) Hypothyroidism: Status: Acute Assessment and plan: On levothyroxine. Given TSH below limits of detection, will hold levothyroxine. (4) Essential hypertension: Status: Acute Assessment and plan: SBP 118-166; yesterday Good control so far today. On no antihypertensives. Monitor (5) Sacral decubitus ulcer: Status: Acute Assessment and plan: R sacral stage II R proximal lateral thigh ulceration. Wound care nurse has seen patient and will treat; includes repositioning measures. (6) Failure to thrive: Status: Acute Assessment and plan: Cachectic with wt of 39 kg. Nutrition consulted, Longstanding dysphagia. Pts stated she eats like a horse. Subjective Subjective Patient reports: afebrile; denies diarrhea, nausea, vomiting and shortness of breath Interval history since last seen: More alert and is communicative. States she had nothing to eat yesterday. Exam Narrative Exam Narrative: Frail, cachectic appearing. Sitting on commode Const General: no acute distress and frail appearing Nutritional Appearance: cachectic Orientation: alert and other (Opens eyes and intermittently will mumble / whi sper a word or two.) [facility] Head: normocephalic, no Carballo's sign and no contusions Eyes General: appearance normal, both eyes and all related structures Sclera: sclerae normal Neck Neck: supple and no JVD Resp Effort & Inspection: normal respiratory effort Auscultation: clear to auscultation bilaterally Cardio Rate: regular rate Rhythm: regular rhythm Heart Sounds: S1 normal and S2 normal GI Palpation: soft and nontender Auscultation: normal bowel sounds Skin General skin exam: no rashes or lesions noted and decreased turgor Neuro General: no focal motor deficits Cranial Nerves: facial strength normal Speech: abnormal speech (dysarthric but intelligable. ) Extrem General: no pedal edema and no calf tenderness Objective Last Vital Signs Temp 36.4 C L 01/29/21 08:29 Pulse 60 01/29/21 08:29 Resp 18 01/29/21 08:29 BP 94/56 L 01/29/21 08:29 Pulse Ox 96 01/29/21 08:29 Laboratory Results - last 24 hr 01/28/21 01/28/21 01/28/21 12:10 12:10 12:10 WBC 10.38 RBC 4.47 Hgb 13.0 Hct 43.3 MCV 96.9 H MCH 29.1 MCHC 30.0 L RDW 13.9 Plt Count 166 MPV 11.8 H Immature Gran % 0.3 Neutrophils % 86.2 Lymphocytes % 6.3 Monocytes % 6.7 Eosinophils % 0.2 Basophils % 0.3 Nucleated RBC % 0 Absolute Neutrophils 8.95 H Absolute Lymphocytes 0.65 L Absolute Monocytes 0.70 Absolute Eosinophils 0.02 Absolute Basophils 0.03 Sodium 140 Potassium 3.7 Chloride 103 Carbon Dioxide 30.0 Anion Gap 7.0 BUN 21 H Creatinine 0.5 L Estimated GFR/1.73 m2 >= 60.00 Glucose 118 H Calcium 9.0 Magnesium Total Bilirubin 0.8 AST 26 ALT 51 Alkaline Phosphatase 184 H Troponin I < 0.05 Total Protein 7.4 Albumin 3.3 L TSH < 0.01 L Urine Color Urine Clarity Urine pH Ur Specific [place] Urine Protein Urine Ketones Urine Blood Urine Nitrite Urine Bilirubin Urine Urobilinogen Ur Leukocyte Esterase Urine RBC Urine WBC Ur Epithelial Cells Urine Crystals Urine Bacteria Urine Casts Urine Mucus Ur Culture Indicated? Urine Glucose COVID-19 Source SARS-CoV-2 (PCR) 01/28/21 01/28/21 01/28/21 12:10 12:42 14:45 WBC RBC Hgb Hct MCV MCH MCHC RDW Plt Count MPV Immature Gran % Neutrophils % Lymphocytes % Monocytes % Eosinophils % Basophils % Nucleated RBC % Absolute Neutrophils Absolute Lymphocytes Absolute Monocytes Absolute Eosinophils Absolute Basophils Sodium Potassium Chloride Carbon Dioxide Anion Gap BUN Creatinine Estimated GFR/1.73 m2 Glucose Calcium Magnesium 2.2 Total Bilirubin AST ALT Alkaline Phosphatase Troponin I Total Protein Albumin TSH Urine Color Yellow Urine Clarity Cloudy Urine pH 6.5 Ur Specific [place] >= 1.030 H Urine Protein Negative Urine Ketones 15 H Urine Blood Moderate H Urine Nitrite Negative Urine Bilirubin Negative Urine Urobilinogen 1.0 H Ur Leukocyte Esterase Negative Urine RBC 10-20 H Urine WBC 0-2 Ur Epithelial Cells Many Urine Crystals Negative Urine Bacteria Many Urine Casts Negative Urine Mucus Trace Ur Culture Indicated? No/Sq. Contamination Urine Glucose Negative COVID-19 Source Nasal/Nares SARS-CoV-2 (PCR) Negative 01/29/21 01/29/21 05:10 05:10 WBC 5.95 D RBC 3.71 L Hgb 10.9 L D Hct 34.8 L MCV 93.8 D MCH 29.4 MCHC 31.3 L RDW 13.5 Plt Count 159 MPV 11.9 H Immature Gran % 0.3 Neutrophils % 90.6 Lymphocytes % 7.6 Monocytes % 1.5 Eosinophils % 0.0 Basophils % 0.0 Nucleated RBC % 0 Absolute Neutrophils 5.39 Absolute Lymphocytes 0.45 L Absolute Monocytes 0.09 L Absolute Eosinophils 0.00 Absolute Basophils 0.00 Sodium 140 Potassium 3.5 Chloride 105 Carbon Dioxide 27.1 Anion Gap 7.9 BUN 23 H Creatinine 0.5 L Estimated GFR/1.73 m2 >= 60.00 Glucose 121 H Calcium 8.5 Magnesium Total Bilirubin AST ALT Alkaline Phosphatase Troponin I Total Protein Albumin TSH Urine Color Urine Clarity Urine pH Ur Specific [place] Urine Protein Urine Ketones Urine Blood Urine Nitrite Urine Bilirubin Urine Urobilinogen Ur Leukocyte Esterase Urine RBC Urine WBC Ur Epithelial Cells Urine Crystals Urine Bacteria Urine Casts Urine Mucus Ur Culture Indicated? Urine Glucose COVID-19 Source SARS-CoV-2 (PCR) PAWSS Have you Been Recently Intoxicated or Drunk Within the Last 30 days?: No Have you Ever Experienced Previous Episodes of Alcohol Withdrawal?: No Have you ever Experienced Withdrawal Seizures?: No Have you ever Experienced Delirium Tremens(DT)s?: No Have you ever undergone Alcohol Rehabilitation Treatment (i.e, inpt ot outpatient treatment programs)?: No Have you ever Experienced Blackouts?: No Have you ever Combined Alcohol with other Downers within the last 90 days?: No Have you ever Combined Alcohol with any other Substance of Abuse during the last 90 days?: No Positive Blood Alcohol level on Presentation? [PCS.BAL]: No Evidence of Increased Autonomic Activity (i.e. HR>120, tremor, sweating, agitation, nausea)?: No Result: 0
[2021-01-29 15:25] VITALS: BP 111/67; PULSE 82; RESP 18; TEMP 36.1; O2SAT 95
[2021-01-29 15:36] LABS: PHOSPHORUS 3.6 mg/dL (2.6-4.7)
[2021-01-29] MEDS: Enoxaparin 40 MG/0.4 ML SYR SC (16:44)
[2021-01-29 23:17] VITALS: BP 104/69; PULSE 73; RESP 18; TEMP 36.8; O2SAT 97
--- NOTE | 2021-01-30 | DI.MRI_ITS ---
Exam(s) MR BRAIN WO/W EXAM: MR BRAIN WO/W CLINICAL HISTORY: Multiple sclerosis. Likely in a flare. TECHNIQUE: Multiplanar multisequence MRI of the brain was performed. CONTRAST MATERIAL: IV Contrast: 7 ML of Dotarem contrast administered. FINDINGS: There is marked atrophy. There is ventricular dilatation, stable. There are multiple high signal fo ci in the white matter scattered and in a periventricular distribution. The findings appear to worse chi when compared with previous exam. No areas of restricted diffusion are seen. There is no eviden ce of hemorrhage or mass. No lesions show enhancement. The orbits, sinuses and mastoid air cells ap pear clear. IMPRESSION: Interval worsening in white matter lesions of when compared with the previous exam. No lesion show r estricted diffusion or post contrast enhancement. DATA REPOSITORY:
[2021-01-30 07:48] VITALS: PULSE 92; RESP 12; TEMP 37.1; O2SAT 95
[2021-01-30 07:50] VITALS: BP 112/72
--- NOTE | 2021-01-30 08:07 | INITIAL_ITS ---
- If Service Date Differs Date of service: 01/30/21 Time of Service: 08:07 Care Management Initial Assess REASON FOR HOSPITALIZATION:: MS flare PAST MEDICAL HISTORY/PAST SURGICAL HISTORY:: Active Problem List . Pressure sore of hip, right, unstageable (Acute). Physical deconditioning (Acute). Abnormal auditory perception (Acute). Sensory hearing loss, bilateral (Acute). Multiple sclerosis (Acute). Dysphagia, neurologic (Acute). Hypothyroidism (Acute). Essential hypertension (Acute 03/19/13). Polyp of colon (Acute). History of blood transfusion (Acute). Depressive disorder (Acute). Memory loss (Acute). Medical History . Atelectasis of left lung. Cerumen impaction. Choking due to foreign body. Surgical History . S/P neck surgery, follow-up exam. Total replacement of hip (~09/2010). transfusion (~1992) PREVIOUS FUNCTIONAL STATUS/SOCIAL/FAMILY SUPPORTS:: Ron lives in [facility] with her Julisa. Ron has MS and requires assistance with ADLs which he provides. She also has home health nursing services for wound care. CURRENT FUNCTIONAL STATUS:: Ron was lying in bed when CM met with her. She is very hard of hearing and difficult to understand, so conversation was limited. She did ask CM where her was and stated that she misses hime. ADVANCE DIRECTIVES:: Julisa DPOA Has patient been provided with info about the portal/API?: Yes Did the patient sign up for the portal?: No CODE STATUS:: Full Code INSURANCE COVERAGE / FINANCIAL ISSUES:: Medicare. [employer] CURRENT HOME/COMMUNITY SERVICES/EQUIPMENT:: home health nursing PRIMARY CARE PHYSICIAN:: Karl Laird POTENTIAL DISCHARGE NEEDS:: follow up with PCP and plan of care PATIENT/FAMILY EDUCATION NEEDS:: Review of discharge instructions, activity, limitations, follow up plan, Ask Me Three TRANSPORTATION:: to be determined by disposition PLAN:: Ron will likley be discharged home with a resumption of services. She will follow up with her community providers and plan of care and likely transport with family.CM will continue to support discharge needs.
[2021-01-30] MEDS: Lactated Ringers 1,000 ML 80 ML IV ×2 (08:11→23:25)
[2021-01-30] MEDS: Lidocaine 5% Patch 1 PATCH TP (08:32)
[2021-01-30] MEDS: Escitalopram 10 MG TAB PO (08:32)
[2021-01-30] MEDS: Aspirin E.C. 81 MG TABEC PO (08:32)
[2021-01-30] MEDS: Normal Saline Flush 10 ML SYR IVP (11:13)
--- NOTE | 2021-01-30 11:13 | PHA.REVIEW ---
Pharmacy Admission Review - Admission Clinical Review (Last Reviewed 01/28/21 @ 12:37 by Alvaro La MD) Failure to thrive (Acute) Sacral decubitus ulcer (Acute) Multiple sclerosis exacerbation (Acute) Dysphagia, neurologic (Acute) Hypothyroidism (Acute) Essential hypertension (Acute 03/19/13) No Known Allergies Allergy (Verified 01/28/21 11:54) Resuscitation Status Full Code Weight 38.4 kg - Renal Dosing Renal Dosing: BUN 23 mg/dL (7-18) H 01/29/21 05:10 Creatinine 0.5 mg/dL (0.55-1.02) L 01/29/21 05:10 Medications needing adjustments: Reviewed List of meds needing interventions: eCrCl 34 ml/min - Anticoagulation Anticoagulation: Hgb 10.9 g/dL (11.2-15.7) L D 01/29/21 05:10 Hct 34.8 % (36.0-46.0) L 01/29/21 05:10 Plt Count 159 10^3/uL (130-400) 01/29/21 05:10 Creatinine 0.5 mg/dL (0.55-1.02) L 01/29/21 05:10 DVT Prophylaxis: Reviewed Medications: Enoxaparin - Opiate Usage Evaluate Pain Scale/Pains Meds: N/A - Relevant Labs Sodium 140 mmol/L (136-145) 01/29/21 05:10 Potassium 3.5 mmol/L (3.5-5.1) 01/29/21 05:10 Chloride 105 mmol/L (98-107) 01/29/21 05:10 Phosphorus 3.6 mg/dL (2.6-4.7) 01/29/21 05:10 Magnesium 2.2 mg/dL (1.8-2.4) 01/28/21 12:10 Electrolytes, C-Reactive P, ESR: Reviewed - DM Control DM Control: Glucose 121 mg/dL (74-106) H 01/29/21 05:10 Insulin Dosing: N/A - Heart Failure/GA Heart Failure/GA: Troponin I < 0.05 ng/mL (<0.06) 01/28/21 12:10 EF%, BOUCHRA's, B-Blockers, Diuretics: Reviewed - BP Control BP Control: Blood Pressure 104/69 If elevated: Reviewed - Qtc Review If Elevated: N/A - IV to PO Switch IV Medications: Reviewed - Home Meds Home Med List reviewed: Reviewed Relevent Home Meds Not ordered & why?: levothyroxine (TSH <0.01) - Current meds Current Medication Order Review: Reviewed (high dose methylprednisone daily X3-5 DAYS)
[2021-01-30] MEDS: Gadoterate meglumine 20 ML VIAL 7 ML IVP (11:14)
--- NOTE | 2021-01-30 12:00 | W.SPSTP ---
Date of service: 01/30/21 Time of Service: 12:00 Klaus Velasquez was contacted at bedside this date for lunch meal. Per MD, her overall status has improved significantly since date of initial admit & eval, and MD initiated puree diet with extremely thick liquids yesterday. During this session, she states several times that she wants to talk to her son, Joel. Asking if she wants to call him: I don't know how. Unable to find number in chart. At times becoming tearful, I want my . Providing gentle supportive listening, reassurance. Noting decreased baseline congested breathing this date. Provided feeding assist/evaluation with patient in reverse trendelenberg positioning in hospital bed. After several bites/sips, patient refuses further trials. 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 Patient/family/caregivers will demonstrate understanding of education regarding role of [employer] OFFICE [employer], impact of MS on swallow function, relationship between respiration and deglutition, and patient's current swallow function and level of risk and related recommendations. IN PROGRESS: Provided education this date to patient re: rationale for thickened liquids. Patient stating probably when asked if she thinks thickened liquids will be safer for her to swallow. 2. Patient will tolerate least restrictive diet without over s/sx aspiration given 1:1 feeding assist from staff and use of safe swallow strategies. IN PROGRESS: Food items tested: [ ] None. Further swallow assessment not warranted at this time. [ ] Ice: [X] IDDSI 0: [X] IDDSI 1: [ ] IDDSI 2: [ ] IDDSI 3: [X] IDDSI 4: [ ] IDDSI 5: [ ] IDDSI 6: [X] IDDSI 7: x1 (cracker) - [ ] Pill/tablet: Oral phase: [ ] WFL [ ] Leakage from mouth [X] Difficulty with bolus manipulation [X] Difficulty with a-p transport: patient requesting pudding chaser to achieve oral transit with dry solid. [X] Difficulty chewing [] Pocketing [X] Residue significant lingual and lateral sulcus residue - improved/eliminated with liquid wash Pharyngeal phase: [ ] WFL [X] Delayed swallow initiation [X] Reduced hyolaryngeal elevation/excursion [ ] Cough after swallow [X] Voice change after self-selected thin liquid from cup edge. Improved with mildly thickened liquids as well as thin liquids from TSP. [ ] Throat clearing [ ] Endorsed stasis 3. Patient/family/caregivers will demonstrate understanding of AAC and communication recommendations and strategies. IN PROGRESS Provided repeat rationale/encouragement to utilize AAC and providing paper booklet assembled for this patient with increased picture options. Patient initially does not wish to use these but with cueing she is able to use it to request talk to my family. May benefit from simplified system while inpatient such as a numbered/coded list of common requests (e.g., I have to pee.) Patient yes/no responses improved this date in reliability. IMPRESSIONS/ASSESSMENT Swallow: While patient does appear with improved overall status, she continues with limited hyo-laryngeal elevation and excursion and appearance of delayed/discoordinated swallow as well as limited ability to manipulate & clear purees and more complex solids from her mouth. 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 Patient She benefits from 1:1 feeding assist to facilitate safe swallow strategies as well as energy conservation. Recommend upgrade liquids to MILDLY THICK (nectar) - during mealtimes. If staff is able, OK to provide thin liquids BETWEEN meals VIA TEASPOON (total assist) for comfort/hydration as long as diligent oral care has been provided. Strict oral care precautions remain integral to prevention of aspiration related pulmonary complications especially given patient's difficulty with secretion management outside of meals. Communication: Appears to be quite reliant on her family members to get her needs met and continues to show frustration with communication here when they are not available to provide assistance. Complicated by documented memory loss likely r/t MS dx, as well as hearing status. Patient benefits from gestures, short/clear verbal communication at audible volume, and picture supplementation when possible to enhance comprehension. She continues to prefer to communicate verbally but is largely unintelligible to unfamiliar listeners. Not very stimulable to cues to enhance listener comprehension of verbal communication such as saying 1 word at a time or choosing to repeat keywords only (vs re-state entire utterance in connected speech). With max cues and assistance, she is able to successfully utilize picture communication board/booklet to clarify her message and continues to benefit from use of partner-facilitated Yes/No questions to clarify. DISCHARGE RECOMMENDATION: Patient would benefit from home health [employer] OFFICE IN[employer] services in order to provide additional assessment and management as well as patient/family education in the home setting for both swallowing and communication in setting of progressive MS. INSTRUMENTATION: If patient would be able to tolerate, recommend MBSS to rule out significant/consistent aspiration and inform/confirm appropriate diet consistencies and swallow strategies. She is unlikely to tolerate procedure at this facility given lack of [employer] video imaging chair for adequate patient transport/positioning, and would recommend she be referred to [facility] or [facility] to undergo MBSS. RECOMMENDATIONS: Diet Texture Modification(s): IDDSI Level(s) 4-Pureed Solids 1-Slightly Thick Liquids (DURING MEALS ONLY) May provide 0-Thin Liquids with trained care provider VIA TEASPOON ONLY and after DILIGENT ORAL CARE between meals. Medication Intake: Whole or crushed with 4-Extremely Thick Liquids and liquid wash (mildly thick) Alter medications only as advised by MD or Pharmacist RISK MANAGEMENT: Oral hygiene q4h/every 4 hours and before/after PO intake using friction with toothbrush on all oral structures as tolerated HOB upright as tolerated; upright for all PO intake. Encourage physical mobility as tolerated. Level of Assistance/Supervision: Assistive feeding only by trained staff/family PO intake only when awake/alert Strategies/Adaptations/Assistive Equipment: Small sips bite Alternate sips/bites (liquid wash) Slow rate of intake. Reduce auditory/visual distractions when eating. Posture/Positioning Needs: Maintain upright position at least 30 minutes after meals COMMUNICATION RECOMMENDATIONS: - Encourage use of Yes/No board and healthcare picture board & booklet- she requires assist and cueing to utilize. - Confirm understanding of patient's utterances using written keywords, Y/N questions - Patient is [place] and with cognitive impacts of MS. Ensure patient is looking at you, ask short/simple/concrete Y/N questions, 1 at a time. Specialist referrals: Neurology, Palliative, ?PT Ancillary tests: MBSS Therapy: HOME HEALTH [employer]ICE [employer]CTOR Goal: N/A PLAN: [employer] OFFICE INSTRUCTOR to follow while on unit up to 4-5x weekly. Fiona Segura, [phone] Speech Language Pathologist [employer] CPT Code: 06000 Swallow tx Time spent: 45 minutes. Coding
--- NOTE | 2021-01-30 13:22 | PGE_ITS ---
Date of Service Date of service: 01/30/21 Time of Service: 13:23 Assessment and Plan Assessment and plan (1) Multiple sclerosis exacerbation: Status: Acute Assessment and plan: Manifested by increased dysphagia, weak cough with difficulty clearing oral-pharyngeal secretions. Solumedrol 1g IV given in ED; repeat daily for 3-5 days; watching for improvement. Speech evaluation appreciated. Initiate pureed diet with very thick liquids, then re-evaluated today and changed to mildly thick liquids. Improving; now alert and engages in conversation but speaks very slowly with low volume. MRI brain: interval worsening in white matter lesions of when compared with the previous exam. No lesion show restricted diffusion or post contrast enhancement. Will need neurology eval/recommendations; will speak with neuro at [facility]. (2) Dysphagia, neurologic: Status: Acute Assessment and plan: Chronic and worsening recently. states she eats regular food cut into small pieces. No choking noted per . Speech therapy consulted; see above (3) Hypothyroidism: Status: Acute Assessment and plan: On levothyroxine. Given TSH below limits of detection, will hold levothyroxine. (4) Essential hypertension: Status: Acute Assessment and plan: SBP 118-166; yesterday Good control so far today. On no antihypertensives. Monitor (5) Sacral decubitus ulcer: Status: Acute Assessment and plan: R sacral stage II R proximal lateral thigh ulceration. Wound care nurse has seen patient and will treat; includes repositioning measures. (6) Failure to thrive: Status: Acute Assessment and plan: Cachectic with wt of 39 kg. Nutrition consulted, Longstanding dysphagia. Pts stated she eats like a horse. Her intake has improved. Subjective Subjective Patient reports: afebrile; denies shortness of breath Interval history since last seen: Pt is very hard of hearing; hears best in Right ear. She verbalizes very little. Has become more alert since admission and steroid treatments. Speech following; see A/P. No choking episodes with food/water. Exam Narrative Exam Narrative: Frail, cachectic appearing. Lying in bed. Const General: no acute distress and frail appearing Nutritional Appearance: cachectic Orientation: alert and other (Opens eyes and intermittently will mumble / whisper a word or two.) HENHI Head: normocephalic, no Carballo's sign and no contusions Eyes General: appearance normal, both eyes and all related structures Sclera: sclerae normal Neck Neck: supple and no JVD Resp Effort & Inspection: normal respiratory effort Auscultation: clear to auscultation bilaterally Cardio Rate: regular rate Rhythm: regular rhythm Heart Sounds: S1 normal and S2 normal GI Palpation: soft and nontender Auscultation: normal bowel sounds Skin General skin exam: no rashes or lesions noted and decreased turgor Neuro General: no focal motor deficits Cranial Nerves: facial strength normal Speech: abnormal speech (dysarthric but intelligable. ) Extrem General: no pedal edema and no calf tenderness Objective Last Vital Signs Temp 37.1 C 01/30/21 07:48 Pulse 92 H 01/30/21 07:48 Resp 12 01/30/21 07:48 BP 104/69 01/29/21 23:17 Pulse Ox 95 01/30/21 07:48 Laboratory Results - last 24 hr 01/29/21 05:10 Phosphorus 3.6 PAWSS Have you Been Recently Intoxicated or Drunk Within the Last 30 days?: No Have you Ever Experienced Previous Episodes of Alcohol Withdrawal?: No Have you ever Experienced Withdrawal Seizures?: No Have you ever Experienced Delirium Tremens(DT)s?: No Have you ever undergone Alcohol Rehabilitation Treatment (i.e, inpt ot outpatient treatment programs)?: No Have you ever Experienced Blackouts?: No Have you ever Combined Alcohol with other Downers within the last 90 days?: No Have you ever Combined Alcohol with any other Substance of Abuse during the last 90 days?: No Positive Blood Alcohol level on Presentation? [PCS.BAL]: No Evidence of Increased Autonomic Activity (i.e. HR>120, tremor, sweating, agitation, nausea)?: No Result: 0
[2021-01-30 15:34] VITALS: BP 110/70; PULSE 90; RESP 15; TEMP 37; O2SAT 93
[2021-01-30] MEDS: Enoxaparin 40 MG/0.4 ML SYR SC (16:13)
[2021-01-30 23:25] VITALS: BP 119/69; PULSE 69; RESP 15; TEMP 36.2; O2SAT 94
[2021-01-31] MEDS: Aspirin E.C. 81 MG TABEC PO (09:07)
[2021-01-31] MEDS: Escitalopram 10 MG TAB PO (09:07)
[2021-01-31 09:16] VITALS: BP 116/65; PULSE 69; RESP 15; TEMP 37; O2SAT 96
--- NOTE | 2021-01-31 10:44 | IN_ITS ---
Date of service: 01/31/21 Time of Service: 09:35 PT Notes Visit Reasons: Multiple sclerosis flare Inpatient Physical Therapy Evaluation Date:01/31/21 Referring Doctor: Abraham Simon PT Orders: PT CONSULT: Evaluate and Treat Precautions: Standard Patient Profile/Admitting Diagnosis: Orders received for this 80-year-old female with a history of multiple sclerosis. Patient has been admitted due to an exacerbation of this MS diagnosis. Patient was found to have increased difficulty with secretions, increased dysphagia, and weakness. SHe has been admitted for medical management. PMHX: [facility] Active Problem List Pressure sore of hip, right, unstageable (Acute) Physical deconditioning (Acute) Abnormal auditory perception (Acute) Sensory hearing loss, bilateral (Acute) Multiple sclerosis (Acute) Dysphagia, neurologic (Acute) Hypothyroidism (Acute) Essential hypertension (Acute 03/19/13) Polyp of colon (Acute) History of blood transfusion (Acute) Depressive disorder (Acute) Memory loss (Acute) Medical History Atelectasis of left lung Cerumen impaction Choking due to foreign body Surgical History S/P neck surgery, follow-up exam Total replacement of hip (~09/2010) transfusion (~1992) Social History/Home Situation: Lives at home with her Equipment Owned/DME: Patient has multiple items of equipment at home per case management. Subjective: Patient is non verbal. Most communication is with facial cards, and writing. Her receptive language appears intact. Objective: Patient is lying in bed with HOB to 30 degrees, Bed railing is up on her left side. IV in right upper extremity Mental Status: Alert and oriented to person, and place Pain: Patient is non verbal but denies pain upon cue cards ROM: Right Upper Extremity: Limited to 90 degrees of shoulder flexion bilaterally, elbow ROM intact Left Upper Extremity: Limited to 90 degrees of shoulder flexion bilaterally, elbow ROM intact Right Lower Extremity: Hip flexion to 100 degrees bilaterally, KNee extension appears to lack about 20 degrees, knee flexion to 120, ankle plantar flexion to 45 degrees and ankle dorsiflexion to neutral Left Lower Extremity: Hip flexion to 100 degrees bilaterally, KNee extension appears to lack about 20 degrees, knee flexion to 120, ankle plantar flexion to 45 degrees and ankle dorsiflexion to neutral Strength: Right Upper Extremity: Globally 4/5 through upper extremities Left Upper Extremity: Globally 4/5 through upper extremities Right Lower Extremity: Globally 4-/5 through lower extremities Left Lower Extremity: Globally 4-/5 through lower extremities Bed Mobility/Transfers: With moderate assistance patient is able to roll Supine-sit: With moderate assistance patient comes to sit on edge of bed Sit-stand: Max assist to stand but patient is unable to maintain. Stand-sit: Max assist Gait: Not completed today Balance: Static Sitting: Fair Dynamic Sitting: Fair Static Standing:Poor Dynamic Standing: Poor Special Tests: Mobility Limitations Standardized Measure [facility] AM-PAC 6 clicks Basic Mobility Inpatient Short Form: Raw Score: 9 Standardized Score: 30.55 CMS Score: 81.38% Informed Consent/Education: Patient instructed in purpose of PT consult and plan of care. ASSESSMENT: Patient is a 80 year old female with a hx of progressive MS Admitted with exacerbation of MS Patient presents with the following impairment level findings: Global weakness, ROM deficits, Ambulation intolerance, assistance with transfers Pt will benefit from skilled therapy intervention in order to remedy their functional limitations and restore patient to a more appropriate and stable functional level. Impairments are contributing to the following functional limitations: AMPAC score 81.38% Patient is assessed as a High Complexity [id number] based on the following: History: see above Examination: see above Presentation: Unable Decision Making: HIgh based on AMPA 81.38% Goals: Goals X1 week 1. Supine-Sit Min Assistance 2. Sit-Supine Min Assistance 3. Sit-Stand Moderate assistance 4. Stand-Sit Moderate assistance Plan of Care/Treatment Plan: 1-2x/day, 7 days/week x 1 week. Plan of care has been reviewed with the SALES AND MANAGEMENT TRAINEE providing the service under Physical Therapy direction. Initiate Physical Therapy intervention for strengthening, bed mobility, transfers, gait, stairs, balance training, use of assistive device. Possible recommendation of STEADY lift for standing assistance DISCHARGE RECOMMENDATIONS: ( ) Home with no services ( ) Home with services [specify] ( ) Home with outpatient PT (X ) SNF for continued rehabilitation ( ) [facility] Title Examiner [facility] ( ) SNF versus LTC based on ability to participate and progress TREATMENT CODE/TIME: High Complexity Initial evaluation [id number] to 10am 25 min Cristian Napier DPT
[2021-01-31] MEDS: Lactated Ringers 1,000 ML 80 ML IV (13:26)
--- NOTE | 2021-01-31 14:54 | W.PM.PROGNOT ---
Date of Service Date of service: 01/31/21 Time of Service: 14:54 Assessment and Plan Assessment and plan (1) Multiple sclerosis exacerbation: Status: Acute Assessment and plan: Manifested by increased dysphagia, weak cough with difficulty clearing oral-pharyngeal secretions. Solumedrol 1g IV given in ED; Solu-Medrol was not reordered by the day hospitalist. Is unclear as to whether or not neurology from [facility] and recommended not continuing the same. However in light of her improvement in her alertness and ability to engage I would continue the Solu-Medrol for now for the next 3 to 5 days and see if we have continued improvement Speech evaluation appreciated. Initiate pureed diet with very thick liquids, then re-evaluated yesterday and changed to mildly thick liquids. Improving; now alert and engages in conversation but speaks very slowly with low volume. MRI brain: interval worsening in white matter lesions of when compared with the previous exam. No lesion show restricted diffusion or post contrast enhancement. Will need neurology eval/recommendations; will try to get neurology report from yesterdays conversation. I will consult w/ Dr. Brito on Tuesday to evaluate her M.S. I asked the whether or not she has followed w/ any neurologists, and he indicated that she has seen Dr. Brito, however, she has not seen the patient since 09/19/2018 and at that time the patient's did not seem interested in any of Dr. Brito's suggestions regarding treating her cognitive impairment or physical therapy. The patient did have an updated MRI scan of her brain which was performed on 09/28/2018. (2) Dysphagia, neurologic: Status: Acute Assessment and plan: Chronic and worsening recently. states she eats regular food cut into small pieces. (he admits that he does not give her any steak or thick pieces of meat; he says that she will at times choke on salad/lettuce); he was annoyed that we have revisited her dysphagia No choking noted per . Speech therapy consulted; see above (3) Hypothyroidism: Status: Acute Assessment and plan: On levothyroxine. Given TSH below limits of detection, will hold levothyroxine. (4) Essential hypertension: Status: Acute Assessment and plan: SBP 118-166; yesterday Good control so far today. On no antihypertensives. Monitor (5) Sacral decubitus ulcer: Status: Acute Assessment and plan: R sacral stage II R proximal lateral thigh ulceration. Wound care nurse has seen patient and will treat; includes repositioning measures. (6) Failure to thrive: Status: Acute Assessment and plan: Cachectic with wt of 39 kg. Nutrition consulted, Longstanding dysphagia. Pts stated she eats like a horse. Her intake has improved. (7) Cough: Status: Acute Assessment and plan: probably d/t her dysphagia; however, in light of her admitting that both he and she have had symptoms of a cold w/ nonproductive cough and her having a lymphocytopenia on her CBC, I elected to repeat her SARS-CoV-2 swab and put her under PUI pending the results. I have also ordered CT of her chest to evaluate her cough and bibasilar rales since her CXR was negative. If her repeat SARS-CoV-2 swab is negative then I will remove her PUI status. Because the admits to him and her having cold symptoms, he will be asked to leave the hospital. Subjective Subjective Interval history since last seen: Iarm Perrin a 80-year-old patient with a history of multiple sclerosis who presented to the hospital on 01/28/2021 with progressive weakness, nonproductive cough and difficulty handling secretions. She has chronic dysphagia secondary to her MS. She does have difficulty with speaking as well as swallowing. Her reports to me that both he and she have been suffering from a cold recently. She reportedly is fully vaccinated and received her booster on the previous Tuesday, January 23, 2021. She was tested for SARS-CoV-2 and was negative on admission. Chest x-ray on admission showed no pneumonia. Her seemed to be irritated with me when I asked about her dysphagia and previous speech therapy evaluations as well as what types of food she has been able to handle. He is indicated to me that this is all in her chart at [facility] he does not understand why we keep reevaluating this. Speech therapy has cleared her for pur?ed foods along with some thickened liquids. Patient underwent CT scan of her head on admission that showed no acute process however it was suspected that she had an MS flare was started on Solu-Medrol 1 g IV. She subsequently had an MRI scan of her brain which demonstrated interval worsening of previously seen white matter lesions in multiple locations in a periventricular distribution. There were no areas of restricted diffusion seen and no evidence of hemorrhage or mass. No enhancing lesions were seen. No local neurologist was available over the . The day hospitalist preceding me reportedly was going to speak with [facility] neurology to review her MRI findings. However I could not find any documentation of that conversation. Solu-Medrol was discontinued even though she seemed to show some improvement in her level of alertness as well as in her swallowing since the steroids were started. Patient is very hard of hearing and the seems to think this is gotten worse lately. I did an ear exam and she has bilateral cerumen impaction. Speech therapy saw her yesterday please see their note for details. They report regarding swallowing that she has limited hyolaryngeal elevation and excursion in the appearance of delayed/discoordinated swallow as well as limited ability to manipulate and clear pur?es and more complex solids from her mouth. They have indicated that she is significantly reduced her function since the last speech-language pathology evaluation 2018. They indicated she benefit from one-to-one feeding assist to facilitate safe swallowing strategies and they recommend upgrading her liquids to mildly thickened i.e. nectar for mealtimes but approved her for thin liquids between meals via teaspoon for comfort or hydration. Recommend strict oral care precautions to prevent aspiration. First communication indicated that patient continues to show frustration with communication when family is not available to provide assistance. Communication is also complicated by her MS as well as her hearing status. The patient benefits from gestures and short/clear verbal communications at an optimal volume as well as picture supplementation when possible. They recommend on discharge she have home health [facility] services. He also recommend if the patient will tolerate to perform a modified barium swallow to rule out any significant or consistent aspiration. They indicated she would unlikely tolerate the procedure at this facility due to given the lack of of the video imaging chair for adequate patient transport and positioning for the study. They recommend she be referred to [facility] or [facility] to undergo a modified barium swallow study. Exam Narrative Exam Narrative: Thin cachectic appearing female who is tearful she verbalizes but with a dysphonic voice and her speech is difficult to understand. She has trouble understanding me when I speak to her. HEENT is remarkable for impacted cerumen in both ear canals obscuring visualization of her tympanic membranes. Lungs with bibasilar rales no rhonchi or wheezes Heart regular rate and rhythm Abdomen is scaphoid soft nontender nondistended with normal active bowel sounds Objective Last Vital Signs Temp 37 C 01/31/21 09:16 Pulse 69 01/31/21 09:16 Resp 15 01/31/21 09:16 BP 116/65 01/31/21 09:16 Pulse Ox 96 01/31/21 09:16 PAWSS Have you Been Recently Intoxicated or Drunk Within the Last 30 days?: No Have you Ever Experienced Previous Episodes of Alcohol Withdrawal?: No Have you ever Experienced Withdrawal Seizures?: No Have you ever Experienced Delirium Tremens(DT)s?: No Have you ever undergone Alcohol Rehabilitation Treatment (i.e, inpt ot outpatient treatment programs)?: No Have you ever Experienced Blackouts?: No Have you ever Combined Alcohol with other Downers within the last 90 days?: No Have you ever Combined Alcohol with any other Substance of Abuse during the last 90 days?: No Positive Blood Alcohol level on Presentation? [PCS.BAL]: No Evidence of Increased Autonomic Activity (i.e. HR>120, tremor, sweating, agitation, nausea)?: No Result: 0
[2021-01-31 16:32] LABS: COVID-19 PCR Negative (Negative)
[2021-01-31 17:21] LABS: D-Dimer 803 ng/mlFEU (<500)
[2021-01-31 17:25] LABS: Ferritin 77 ng/mL (8-252)
[2021-01-31] MEDS: Omnipaque 350 MG/ML 100 ML BTL IJ (18:27)
[2021-01-31] MEDS: Enoxaparin 40 MG/0.4 ML SYR SC (18:27)
[2021-01-31] MEDS: Pantoprazole 40 MG VIAL IVP (20:04)
[2021-01-31] MEDS: Normal Saline Flush 10 ML SYR IVP (20:05)
[2021-01-31] MEDS: Carbamide Peroxide 15 ML BTL AU (20:06)
[2021-01-31 23:30] VITALS: BP 120/60; PULSE 69; RESP 18; TEMP 36.6; O2SAT 95
[2021-02-01] MEDS: Normal Saline Flush 10 ML SYR IVP ×2 (00:11→09:01)
[2021-02-01 01:25] VITALS: TEMP 37.2
[2021-02-01] MEDS: Lactated Ringers 1,000 ML 80 ML IV ×2 (04:08→23:49)
[2021-02-01 06:54] LABS: HCT 38.5 % (36.0-46.0); HGB 12.2 g/dL (11.2-15.7); MCH 29.3 pg (27.0-33.0); MCHC 31.7 % (32.0-36.0); MCV 92.3 fL (80-95); MPV 12.2 fL (8.0-11.0); Platelet Count 138 10^3/uL (130-400); RBC 4.17 10^6/uL (3.93-5.22); RDW 13.2 % (11.7-14.6); RDW-SD 45.7 fL; WBC 5.83 10^3/uL (4.4-10.8)
[2021-02-01 08:05] VITALS: BP 160/86; PULSE 80; RESP 25; TEMP 36.6; O2SAT 93
[2021-02-01] MEDS: Pantoprazole 40 MG VIAL IVP ×2 (08:53→21:03)
[2021-02-01] MEDS: Protein Nutritional Supplement 16 GM 1 OUNCE PACKET PO ×2 (08:54→21:03)
[2021-02-01] MEDS: Carbamide Peroxide 15 ML BTL AU ×2 (08:54→21:04)
[2021-02-01] MEDS: Aspirin E.C. 81 MG TABEC PO (08:54)
[2021-02-01] MEDS: Escitalopram 10 MG TAB PO (08:55)
--- NOTE | 2021-02-01 09:53 | PT.INTREAT ---
Date of service: 02/01/21 Time of Service: 08:10 PT Notes Visit Reasons: Multiple sclerosis flare Inpatient Physical Therapy Treatment Note [facility] Date: 02/01/2021 PRECAUTIONS: Activity as Tolerated, Fall SUBJECTIVE: Ron conveys that she is agreeable to participating in PT and states that she is feeling OK today. She is agreeable to transferring to the chair for breakfast. OBJECTIVE: PAIN: No c/o pain BED MOBILITY/TRANSFERS Supine-sit: Min A with HOB at 30 degrees and verbal/tactile cueing Sit-stand: Max A Stand-sit: Max A Bed-chair: Stand-pivot with Max A and cueing for hand placement GAIT: Unable THEREX: Patient was instructed in a seated resisted UE and LE strengthening program, as per flow sheet. She requires assist for all LE exercise completion due to weakness. She tolerates static sitting at EOB x3 minutes with SBA. ASSESSMENT: Patient continues to demonstrate limited activity tolerance, and global weakness due to recent immobility due to MS exacerbation. She was able to complete stand-pivot transfer today, although requires cueing for safety with all transfers at this time. PLAN: Continue with global strengthening and general conditioning for continued progression toward baseline level of function. TREATMENT CODE/TIME: 26 minutes; 46957, 32480 (08:10)
--- NOTE | 2021-02-01 10:38 | DI.VRAD_ITS ---
PROCEDURE INFORMATION: Exam: CT Chest With Contrast; Diagnostic Exam date and time: 01/31/2021 2:56 PM Age: 80 years old Clinical indication: Cough and shortness of breath TECHNIQUE: Imaging protocol: Diagnostic computed tomography of the chest with contrast. 3D rendering (Not supervised by radiologist): MIP and/or 3D reconstructed images were created by the technologist. Contrast material: OMNIPAQUE 350; Contrast volume: 60 ml; Contrast route: INTRAVENOUS (IV); COMPARISON: CT CHEST WITH CONTRAST 26/08/2016 08:30 FINDINGS: Thyroid: Normal. No significant nodule or enlargement. Trachea: Normal. Lungs: In the left base posteriorly there are patchy areas of airspace consolidation with some increase in interstitial markings. This is of concern for potential developing pneumonia. Pleural spaces: Small pleural effusion is layered posteriorly on the left. There is some pleural thickening more inferiorly in both lung bases posteriorly. Heart: No cardiomegaly. No pericardial effusion. Coronary arteries: No significant calcification. Esophagus: No esophageal mass or wall thickening. No hiatal hernia. Mediastinal space: Normal. No mass or adenopathy. Pulmonary arteries: Nonenlarged. No filling defects demonstrated. Aorta: Unremarkable. No aortic aneurysm or significant atherosclerosis. Lymph nodes: No enlarged mediastinal or axillary lymph nodes. Bones/joints: Unremarkable. No acute fracture. There is moderate dextroscoliosis of the thoracic spine. Soft tissues: Unremarkable. Other findings: Bilateral cysts are noted in the kidneys in the upper abdomen. IMPRESSION: Left lower lobe infiltrate with accompanying effusion suspicious for pneumonia. Dictated and Authenticated by: Andre Reed MD. Ordering:[facility] Diane Pearl MD
[2021-02-01 13:44] VITALS: BP 128/70; PULSE 78; RESP 25; TEMP 36.8; O2SAT 97
--- NOTE | 2021-02-01 15:33 | W.PM.PROGNOT ---
Date of Service Date of service: 02/01/21 Time of Service: 15:33 Assessment and Plan Assessment and plan (1) Multiple sclerosis exacerbation: Status: Acute Assessment and plan: continue iv solumedrol 1000 mg IV daily; will put on Bactrim DS daily for PJP prophylaxis while on high dose corticosteroids. Will ask Neurology to weigh in on her M.S. and set up further plan of treatment and follow up. I am not sure that all of her white matter disease seen on her MRI is d/t M.S. She had no new lesions per radiology report, but the previously seen periventricular lesions appear worse. I will ask neurologist's opinion and request guidance on further treatment (2) Dysphagia, neurologic: Status: Acute Assessment and plan: Chronic and worsening recently. states she eats regular food cut into small pieces. (he admits that he does not give her any steak or thick pieces of meat; he says that she will at times choke on salad/lettuce); he was annoyed that we have revisited her dysphagia No choking noted per . Speech therapy consulted; BRAILLE OPERATOR recommended pureed foods w/ slightly thickened liquids. I have added protein supplements to her diet. Per nursing she seems to be tolerating her diet. She requires one on one supervision of her feedings. (3) Hypothyroidism: Status: Acute Assessment and plan: On levothyroxine. Given TSH below limits of detection, continue to hold levothyroxine. (4) Essential hypertension: Status: Acute Assessment and plan: BP fluctuates but overall has been acceptable. Currently running 120/70 to 160/80. I think that there is some lability in her BP d/t her being upset at not going home yet. On no antihypertensives. Monitor (5) Sacral decubitus ulcer: Status: Acute Assessment and plan: R sacral stage II R proximal lateral thigh ulceration. Wound care nurse has seen patient and will treat; includes repositioning measures. (6) Failure to thrive: Status: Acute Assessment and plan: Cachectic with wt of 39 kg. Nutrition consulted, Longstanding dysphagia. Pts stated she eats like a horse. Her intake has improved since being on high dose corticosteroids (7) Cough: Status: Acute Assessment and plan: secondary to her dysphagia, seems improved since she has been on solumedrol. (8) DVT prophylaxis: Status: Acute Assessment and plan: on enoxaparin 40 mg SC daily (9) Discharge planning issues: Status: Acute Assessment and plan: family intends to take her home when medically ready. We will consult home health for BRAILLE OPERATOR, P.T., O.T. and nursing to follow up w/ her. Subjective Subjective Interval history since last seen: Patient is tearful. We communicated through writing her messages, and she responded by pointing to pictures in her picture book and through a communication board. She indicated that she is sad and frustrated. She wants to go home and wants to see her family. Her familiy was sent home yesterday after her admitted to both of them suffering from cold symptoms. Ron had a repeat SARS-COV2 nasal swab yesterday which was negative. This was her second negative swab this admission. At this time, I told her that we would like neurology to see her tomorrow to evaluate her M.S. and to guide her treatment. Exam Narrative Exam Narrative: Tearful, but alert and she seems to understand and able to communicate her wants/needs; she is hard of hearing however she also has cerumen impaction. She is receiving Debrox for this. Speech is difficult to understand. Lungs: some adventitious breath sounds that clears w/ cough and deep breathing Heart: RRR Abdomen: soft, nontender, nondistended, normal bowel sounds Objective Last Vital Signs Temp 36.8 C 02/01/21 13:44 Pulse 78 02/01/21 13:44 Resp 25 H 02/01/21 13:44 BP 128/70 02/01/21 13:44 Pulse Ox 97 02/01/21 13:44 Laboratory Results - last 24 hr 01/31/21 01/31/21 01/31/21 15:40 16:30 16:30 WBC RBC Hgb Hct MCV MCH MCHC RDW Plt Count MPV D-Dimer 803 H Ferritin 77 C-Reactive Protein 0.90 H COVID-19 Source NASOPHARYX SARS-CoV-2 (PCR) Negative Patient ABO/Rh Antibody Screen 01/31/21 02/01/21 16:30 06:16 WBC 5.83 RBC 4.17 Hgb 12.2 Hct 38.5 MCV 92.3 MCH 29.3 MCHC 31.7 L RDW 13.2 Plt Count 138 MPV 12.2 H D-Dimer Ferritin C-Reactive Protein COVID-19 Source SARS-CoV-2 (PCR) Patient ABO/Rh A Negative Antibody Screen NEGATIVE PAWSS Have you Been Recently Intoxicated or Drunk Within the Last 30 days?: No Have you Ever Experienced Previous Episodes of Alcohol Withdrawal?: No Have you ever Experienced Withdrawal Seizures?: No Have you ever Experienced Delirium Tremens(DT)s?: No Have you ever undergone Alcohol Rehabilitation Treatment (i.e, inpt ot outpatient treatment programs)?: No Have you ever Experienced Blackouts?: No Have you ever Combined Alcohol with other Downers within the last 90 days?: No Have you ever Combined Alcohol with any other Substance of Abuse during the last 90 days?: No Positive Blood Alcohol level on Presentation? [PCS.BAL]: No Evidence of Increased Autonomic Activity (i.e. HR>120, tremor, sweating, agitation, nausea)?: No Result: 0
[2021-02-01 15:49] VITALS: BP 156/76; PULSE 81; RESP 18; TEMP 37.3; O2SAT 95
[2021-02-01 15:50] LABS: ESR 10 mm/hr (0-30)
[2021-02-01] MEDS: Sulfameth/Trimeth DS TAB 1 TAB PO (17:34)
[2021-02-01] MEDS: Enoxaparin 40 MG/0.4 ML SYR SC (17:36)
[2021-02-01] MEDS: Acetaminophen 325 MG TAB PO (21:04)
[2021-02-01] MEDS: traZODone 50 MG TAB PO (21:04)
[2021-02-02 03:50] VITALS: BP 155/75; PULSE 81; RESP 18; TEMP 36.5; O2SAT 96
--- NOTE | 2021-02-02 08:14 | PCNE_ITS ---
Date of service: 02/02/21 Time of Service: 08:14 History of Present Illness History of Present Illness Chief Complaint: fraility Narrative: From H and P: History of Present Illness Chief Complaint: Chest congestion and fatigue Narrative: This is a 80 yo female with history of multiple sclerosis, physical deconditioning, dysphagia, cachexia, hypertension. She was brought to the ED by her son with concern for respiratory illness. Patient unable to provide history. Son notes respiratory symptoms for the past 3 days; chest congestion and difficulty handling her secretions. She has also been noted to be more fatigued. Chronic dysphagia with difficulty swallowing and speaking. She does not have much respiratory effort or ability to cough. She is fully vaccinated for Covid and received a booster on the previous Tuesday. WBC count normal. Afebrile. Lytes normal. BUN 21. Creatinine 0.5. Glucose 118. TSH <0.01. CXR w/o acute findings. CT head w/o acute processes. Dxd with likely multiple sclerosis flare and given 1g IV solu-medrol. Admitted for further steroids and evaluation. Interim Hx: Consults Consult date: 02/02/21 Requesting physician: Abraham Simon Assessment and Plan Assessment and plan (1) Cough: Status: Acute (2) Decubitus ulcer: Status: Acute (3) Failure to thrive: Status: Acute (4) Multiple sclerosis exacerbation: Status: Acute (5) Physical deconditioning: Status: Acute (6) Palliative care patient: Status: Acute Review of Systems Constitutional Constitutional: Reports chills, Reports fatigue, Reports lethargy and Reports weakness Cardiovascular Cardiovascular: Reports dyspnea Respiratory Respiratory: Reports dyspnea Comments: poor respiratory effort Musculoskeletal Musculoskeletal: Reports muscle weakness and Reports other (wheel chair bound) Neurologic Neurologic: Reports weakness Endocrine Endocrine: Reports fatigue [facility] Active Problem List Pressure sore of hip, right, unstageable (Acute) Physical deconditioning (Acute) Abnormal auditory perception (Acute) Sensory hearing loss, bilateral (Acute) Multiple sclerosis (Acute) Dysphagia, neurologic (Acute) Hypothyroidism (Acute) Essential hypertension (Acute 03/19/13) Polyp of colon (Acute) History of blood transfusion (Acute) Depressive disorder (Acute) Memory loss (Acute) Medical History Atelectasis of left lung Cerumen impaction Choking due to foreign body Surgical History S/P neck surgery, follow-up exam Total replacement of hip (~09/2010) transfusion (~1992) Family History Mother , 93 Essential hypertension Father , 96 No problems noted. Maternal Grandfather , 80 No problems noted. Paternal Grandfather , 80 No problems noted. Maternal Grandmother , 92 Cancer Paternal Grandmother , 85 No problems noted. Son Heart disease Son No problems noted. Son No problems noted. Brother , age 74 No problems noted. Social History Smoking/Tobacco Use Status: Former Tobacco Use Quit Date: 03/07/1959 Tobacco: How many years used: 2 Smoking risk assessment performed?: Yes Alcohol Intake: current Alcohol Intake frequency: 0-2 drinks per day Alcohol type: beer and wine Drug use: Never Substance use type: does not use Counseling provided: none Caregiver/Support person: Yes Household members: spouse Communication Needs: Corrective Lenses Do you need help understanding health information?: Rarely Pets and animals: Yes Sexually active: No Do you think of yourself as: straight/heterosexual Current gender identity: female and decline to answer What is your relationship status?: How often do you talk on the phone with friends or family?: once per week How often do you get together with friends or relatives?: decline to answer How often do you attend pentecostal or oriental orthodox services?: decline to answer Do you belong to any clubs or organized social groups?: decline to answer Panel score (0-1 are the most socially isolated patients): 1 What type of physical activity do you participate in: decline to answer Duration: decline to answer Frequency: decline to answer Arline/Worship: No preference Special arline needs: No Seatbelt use: always Helmet use: No Drive intox or ride w/intox catering truck driver: No Do you feel safe in your relationship?: Yes Exam Narrative Exam Narrative: Iram is a 80-year-old woman with longstanding MS. She has a devoted who cares for her night and day. She appears cachectic and is lying in bed. She is not able to speak in a comprehendable voice Results Last Vital Signs Temp 97.7 F 02/02/21 03:50 Pulse 81 02/02/21 03:50 Resp 18 02/02/21 03:50 BP 155/75 H 02/02/21 03:50 Pulse Ox 96 02/02/21 03:50 MRI Brain: FINDINGS: There is marked atrophy. There is ventricular dilatation, stable. There are multiple high signal foci in the white matter scattered and in a periventricular distribution. The findings appear to worsened when compared with previous exam. No areas of restricted diffusion are seen. There is no evidence of hemorrhage or mass. No lesions show enhancement. The orbits, sinuses and mastoid air cells appear clear. IMPRESSION: Interval worsening in white matter lesions of when compared with the previous exam. No lesion show restricted diffusion or post contrast enhancement. Chest XR FINDINGS: There is a right convex thoracic scoliosis. Cardiac size is at the upper limits normal. Lungs appear grossly clear. No pleural effusion seen on this frontal film. IMPRESSION: No evidence of acute process. Labs Result diagrams: 02/01/21 06:16 01/29/21 05:10 Labs: Laboratory Results - last 24 hr 02/01/21 06:16 ESR 10
[2021-02-02] MEDS: Aspirin E.C. 81 MG TABEC PO (09:58)
[2021-02-02] MEDS: Protein Nutritional Supplement 16 GM 1 OUNCE PACKET PO (09:58)
[2021-02-02] MEDS: Escitalopram 10 MG TAB PO (09:58)
[2021-02-02] MEDS: Pantoprazole 40 MG VIAL IVP (09:59)
[2021-02-02] MEDS: Normal Saline Flush 10 ML SYR IVP (09:59)
--- NOTE | 2021-02-02 10:25 | OT.INIE ---
Occupational Therapy Notes Inpatient Occupational Therapy Evaluation Date: 02/02/21 Referring Doctor:Dr. Simon OT Orders: Non urgent Precautions: Fall, standard, Full PATIENT PROFILE/ADMITTING DIAGNOSIS: Pt is a 80 year old female who was admitted through the ED for the following dx of cough, cerumen inpaction, decubitus ulcer, failure to thrive, sacral ulcer, MS exacerbation, pressure sore on hip, physical deconditioning, hearing loss, dysphagia. Past Medical History: Active Problem List Pressure sore of hip, right, unstageable (Acute) Physical deconditioning (Acute) Abnormal auditory perception (Acute) Sensory hearing loss, bilateral (Acute) Multiple sclerosis (Acute) Dysphagia, neurologic (Acute) Hypothyroidism (Acute) Essential hypertension (Acute 03/19/13) Polyp of colon (Acute) History of blood transfusion (Acute) Depressive disorder (Acute) Memory loss (Acute) Medical History Atelectasis of left lung Cerumen impaction Choking due to foreign body Surgical History S/P neck surgery, follow-up exam Total replacement of hip (~09/2010) transfusion (~1992) Social History/Home Situation: Unable to fully assess home situation and baseline at this time. Pt is reporting to OT that she gets (A) With transfers and is otherwise (I). She states that she has a shower bench, removable shower head and all adaptive equipment needs. OT is unable to validate pts baseline with pts report. OT will continue to work towards assessment. OT does know that pts and son (A) per pt report. Equipment owned/DME: Unable to assess per pts report, OT did attempt to call family member with no luck at todays session. SUBJECTIVE: Pt was sitting in chair when OT arrived, she was agreeable to consult but reports that she is sad today. OBJECTIVE: General Observation: Pleasant, verbal communication is limited, IV in (L) UE Mental Status: A&Ox3 Pain: no c/o pain that OT could tell from assessment. ROM: RUE Able to reach above head with decreased stability in (B) UE, elbows WNL, fingers/wrist slow movements WNL L UE Able to reach above head with decreased stability in (B) UE, elbows WNL, fingers/wrist slow movements WNL STRENGTH: RUE 3+/5 throughout LUE 3/5 throughout FUNCTIONAL MOBILITY/ADLS: BATHING Performed prior to OT arrival with nursing. DRESSING N/A with pt, attempt was made for donning and doffing her socks and she required max (A) at this timr. GROOMING Pt has ROM enough to touch her head, her decreased gross and fine motor control is the most limiting to her at this time. TOILETING NT EATING Pt was taking her pills when OT arrived, max (A) with use of spoon to mouth with pills, was able to hold small container in her hand. No attempt made of hand to mouth due to cough. BALANCE: Static sitting Good Dynamic Sitting Good SPECIAL TESTS: Daily Activity Limitations Standardized Measure [facility] AM -PAC ?6 clicks? Daily Activity Inpatient Short Form: Raw score: 10 Standardized score: 25.33 CMS score: 79.59% INFORMED CONSENT/EDUCATION: Pt instructed in purpose of OT Consult and plan of care. ASSESSMENT: Patient is a 80-year-old female referred to occupational therapy services with diagnosis of cough, cerumen inpaction, decubitus ulcer, failure to thrive, sacral ulcer, MS exacerbation, pressure sore on hip, physical deconditioning, hearing loss, dysphagia. Patient presents with clinical signs and symptoms consistent with dx, as demonstrated by the following impairment level findings/following functional limitations: Decreased gross and fine motor control for (B) UE, decreased functional activity tolerance, decreased strength in (B) UE, decreased performance of ADLs without (A), decreased verbal communication as a barrier to pts needs, exacerbation of MS with contributory symptoms, impairments in standing tolerance. Poor historian and unable to fully assess pts baseline level of function. AMPAC score 10 Patient is assessed as a Moderate 40894 complexity based on the following: History: see above Examination: see functional limitations as noted above Presentation: evolving Decision Making: AMPAC score 10 GOALS Goals x1 week 1. Grooming- sitting in chair Mod (A) brushing hair 2. Dressing- mod (A) UE donning the [facility] gown 3. Bathing- Mod (A) UE 4. Toileting- Mod (A) 5. Eating- Min (A) PLAN OF CARE/TREATMENT PLAN: 1x/day, 5 days/ week x 1week Initiate Occupational Therapy Services for bathing, dressing, grooming, toileting, eating, transfer training. DISCHARGE RECOMMENDATIONS Based on pts current level of function without being able to speak to family members to verify pts baseline level of function at this time, OT recommends SNF for continued care. Pt reports that she is functionally (I) at her baseline although CM notes indicate differently. OT feels that once baseline level of function is established with family needs then further assessment can be made. OT and pt did attempt to call family members and call was not successful at todays session. OT is unable to assess pts adaptive equipment needs at this time per pts response during assessment. TREATMENT TIME/MINUTES/CODES [id number], [id number], 35 minutes (09:50) Margaret Jarvis OTR/[facility]
[2021-02-02 10:28] VITALS: BP 162/70; PULSE 81; RESP 16; TEMP 36.6; O2SAT 96
--- NOTE | 2021-02-02 11:24 | NCONE_ITS ---
Date of service: 02/02/21 Time of Service: 11:24 Assessment and Plan Assessment and plan (1) Multiple sclerosis: Status: Acute (2) Dysphagia, neurologic: Status: Acute Assessment and plan: Ms. Alarcon is a 80 year-old right-handed woman with either primary vs secondary progressive MS with significant dysarthria and dysphagia, acutely worse with reduced PO intake, altered mental status, and fevers at home; now all resolved and seemingly at baseline. I do not see any significant progression of MS on MRI imaging. There are no enhancing lesions. Do not suspect an MS attack and thus no role for steroids - concerned actually that steroids could pre-dispose to infection. Ms. Alarcon's goal is to return home which she stated emphatically. I reached out to Mr. Alarcon but have not heard back from him at the time of writing this note. Given their previous preference of treating MS palliatively, I will assume that is the case at present. Regardless, I would not necessarily recommend DMT therapy at present even in setting of progressive disease given Ms. Alarcon's fraility. Will discuss with Mr. Alarcon if they would like neurological follow-up. O therwise, agree with Palliative Care consultation. Continue ST. Please call with any further questions or concerns. History of Present Illness History of Present Illness Chief Complaint: MS Narrative: Handedness: right. HPI: Ms. Alarcon is a 80-year-old woman with multiple sclerosis, hypertension, hypothyroidism, and depression. I previously met her x1 in September 2018 in regards to her MS. She has either primary or secondary progressive MS. She has never been on DMTs and has had little neurological care over the years. She has been non-ambulatory for ~15 years. She is most hampered by progressive dysarthria and dysphagia. Ms. Alarocn underwent COVID booster vaccination on 01/23/21. Presented to PCP's office on 01/28/21 with several days of increasing confusion along with fever night prior and increased phlegm production. Sent to ER where she underwent thorough evaluation including WBC 10/38, ESR 10, Cr 0.5, AlkP 184, Trop x 1 neg, CRP 0.9, TSH <0.01, urine spec gravity >1.030, moderate blood in urine. No evidence of pneumonia on CXR. Concern for failure to thrive. Noted pressure sore. She was treated with IV Solumedrom 1gm x1. ST evaluation on 01/28/21 noted significant acute on chronic dysphagia with recommendations for palliative care vs transfer for further testing that could not be done here. Luckily, Ms. Alarcon's mental status, dysarthria, and dysphagia improved; confirmed on re-evaluation 01/30/21. Currently rec'd 1:1 feedings with nectar liquids and pureed solids. Given seeming improvement following steroids; treated further with Solu-medrol 01/31/21 and 02/01/21. She appears to be at baseline. She underwent brain MRI 01/30/21. I reviewed the images personally as well as comparison images from 09/28/18. There are no acute findings. She has severe atrophy, most pronounced in the cerebelllum and brainstem and not significantly changed compared to prior images. She has moderate white matter changes in pa ttern consistent with MS, that also does not appear changed from previous imaging. It should be noted that radiology did feel there was progression. I note that these MRIs were performed on different MRI machines. There are no enhancing lesions on the present MRI. Consults Requesting physician: Abraham Simon Review of Systems All systems reviewed & are unremarkable except as noted in HPI and below [facility] Active Problem List Palliative care patient (Acute) DVT prophylaxis (Acute) Discharge planning issues (Acute) Cough (Acute) Cerumen impaction (Acute) Decubitus ulcer (Acute) Failure to thrive (Acute) Sacral decubitus ulcer (Acute) Multiple sclerosis exacerbation (Acute) Pressure sore of hip, right, unstageable (Acute) Physical deconditioning (Acute) Abnormal auditory perception (Acute) Sensory hearing loss, bilateral (Acute) Multiple sclerosis (Acute) Dysphagia, neurologic (Acute) Hypothyroidism (Acute) Essential hypertension (Acute 03/19/13) Polyp of colon (Acute) History of blood transfusion (Acute) Depressive disorder (Acute) Memory loss (Acute) Medical History Atelectasis of left lung Choking due to foreign body Surgical History S/P neck surgery, follow-up exam Total replacement of hip (~09/2010) transfusion (~1992) Family History Mother , 93 Essential hypertension Father , 96 No problems noted. Maternal Grandfather , 80 No problems noted. Paternal Grandfather , 80 No problems noted. Maternal Grandmother , 92 Cancer Paternal Grandmother , 85 No problems noted. Son Heart disease Son No problems noted. Son No problems noted. Brother , age 74 No problems noted. Social History Smoking/Tobacco Use Status: Former Tobacco Use Quit Date: 03/07/1959 Tobacco: How many years used: 2 Smoking risk assessment performed?: Yes Alcohol Intake: current Alcohol Intake frequency: 0-2 drinks per day Alcohol type: beer and wine Drug use: Never Substance use type: does not use Counseling provided: none Caregiver/Support person: Yes Household members: spouse Communication Needs: Corrective Lenses Do you need help understanding health information?: Rarely Pets and animals: Yes Sexually active: No Do you think of yourself as: straight/heterosexual Current gender identity: female and decline to answer What is your relationship status?: How often do you talk on the phone with friends or family?: once per week How often do you get together with friends or relatives?: decline to answer How often do you attend tenriism or restorationism services?: decline to answer Do you belong to any clubs or organized social groups?: decline to answer Panel score (0-1 are the most socially isolated patients): 1 What type of physical activity do you participate in: decline to answer Duration: decline to answer Frequency: decline to answer Arline/Hinduism: No preference Special arline needs: No Seatbelt use: always Helmet use: No Drive intox or ride w/intox city driver: No Do you feel safe in your relationship?: Yes Visit Medication and Allergies Active Medications Generic Name Dose Route Start Last Admin Trade Name Freq PRN Reason Stop Dose Admin Acetaminophen 0 mg 01/28/21 15:13 02/01/21 21:04 Acetaminophen 325 Mg Tab PO 325 mg Q4H PRN PRN Administration Aspirin 81 mg 01/29/21 08:30 02/02/21 09:58 Aspirin E.C. 81 Mg Tabec PO 81 mg DAILY MAYRA Administration Carbamide Peroxide 0 ml 01/31/21 20:00 02/01/21 21:04 Carbamide Peroxide 15 Ml Btl AU 02/03/21 19:59 10 drp BID MAYRA Administration Dimethicone/Zinc Oxide 0 gm 01/28/21 15:03 Florina Protect Cream 142 Gm Tube TP PRN PRN Enoxaparin Sodium 40 mg 01/28/21 16:00 02/01/21 17:36 Enoxaparin 40 Mg/0.4 Ml Syr SC 40 mg Q24H MAYRA Administration Escitalopram Oxalate 10 mg 01/29/21 08:30 02/02/21 09:58 Escitalopram 10 Mg Tab PO 10 mg DAILY MAYRA Administration Sodium Chloride 500 mls @ 0 mls/hr 01/28/21 11:58 Saline 500ml Bag IV PRN PRN As Directed Ringer's Solution 1,000 mls @ 80 mls/hr 01/28/21 17:00 02/01/21 23:49 IV 80 mls/hr INFUSION MAYRA Administration IV Miscellaneous Supplies 1 each 01/28/21 12:00 Iv Access IV DIRECTED MAYRA Lidocaine 1 patch 01/30/21 08:30 02/01/21 08:55 Lidocaine 5% Patch TP Not Given Q24H MAYRA Miscellaneous 1 each 01/30/21 22:30 02/01/21 22:01 Patch Removal (Lidocaine) TP Not Given Q24H [facility] Multi-Ingredient Supplement 1 ounce 02/01/21 08:30 02/02/21 09:58 Protein Nutritional Supplement 16 Gm 1 Ounce Packet PO 1 ounce TID MAYRA Administration Pantoprazole Sodium 40 mg 01/31/21 20:00 02/02/21 09:59 Pantoprazole 40 Mg Vial IVP 40 mg Q12H MAYRA Administration Polyethylene Glycol 17 gm 01/28/21 15:13 Polyethylene Glycol 3350 17 Gm Packet PO DAILY PRN PRN Constipation Sodium Chloride 0 ml 01/28/21 11:58 02/02/21 09:59 Normal Saline Flush 10 Ml Syr IVP 20 ml PRN PRN Administration Trazodone HCl 25 - 50 mg 01/28/21 15:02 02/01/21 21:04 Trazodone 50 Mg Tab PO 50 mg HS PRN PRN Administration insomnia Allergies No Known Allergies Allergy (Verified 01/28/21 11:54) Exam Narrative Exam Narrative: Physical Exam: Constitutional: Patient of apparent stated age, thin/frail Neck: Supple, no meningismus CV: RRR, S1, S2, no murmur Resp: CTAB Abd: Soft, nontender, nondistended, +BS Neuro: MS/Language/Speech: Alert, oriented to self, fluency impaired; able to follow simple commands; moderate-severe dysarthria CN: PERRL, EOMI, visual fang full, trigeminal sensation intact, R nasolabial fold flattening, hearing reduced, palate elevates symmetrically, unable to completely protrude tongue but appears midline Motor: 4/5 strength in the bilateral UE; no movement in the bilateral LE Sensation: appears intact to PP throughout, but difficult to test due to cognition Reflexes: brisk throughout, downgoing toes; 5-6 beats clonus L ankle Coordination: no ataxia Gait: non-ambulatory Results Last Vital Signs Temp 97.9 F 02/02/21 10:28 Pulse 81 02/02/21 10:28 Resp 16 02/02/21 10:28 BP 162/70 H 02/02/21 10:28 Pulse Ox 96 02/02/21 10:28 Labs Result diagrams: 02/01/21 06:16 01/29/21 05:10 Labs: Laboratory Results - last 24 hr 02/01/21 06:16 ESR 10
--- NOTE | 2021-02-02 11:53 | DSE_ITS ---
Date of service: 02/02/21 Time of Service: 11:53 DS: Diagnosis Discharge Diagnosis (1) Dysphagia, neurologic: Status: Chronic Asessment and Plan: Her cough is felt to be secondary to her dysphagia. Speech therapy evaluated the patient and recommended pur?ed diet with mildly thickened liquids. All medicine should be crushed or given in liquid form and mixed with her pur?ed foods. Feeding should be supervised on a one-to-one basis with the patient with the patient sitting bolt upright at 90 degrees and encouraged to perform double swallows to prevent aspiration. Feeding should alternate pur?ed foods with thickened liquids. Speech therapist did recommend consideration of a modified barium swallow if the family desires. This would have to be performed at a tertiary care center such as [facility] or [facility] where a special chair and video camera can be used given the patient's immobility. Please see speech therapist notes for details. Speech therapy should continue to follow her through home health services. (2) Cough: Status: Chronic Asessment and Plan: Chronic cough secondary to her dysphagia and difficulty clearing her secretions. No evidence for respiratory infection at this time. Chest x-ray showed no infiltrates. Patient never had any fever or nor did she have any leukocytosis. (3) Decubitus ulcer: Status: Chronic Asessment and Plan: Chronic sacral decubitus ulcer. Patient received daily dressing changes by nursing staff. Home health care to assume care of this condition upon return to her home. Recommend wound care nurse consultation at home for further recommendations. (4) Failure to thrive: Status: Chronic Asessment and Plan: Patient is failure to thrive is directly related to her chronic medical conditions which are not improving including her dementia and her MS. She remains bedbound at this point palliative care should continue to follow her as an outpatient. It is recommended that the family and palliative care discuss her CODE STATUS as she remains a full code at present time and given her multiple comorbidities and her age the likelihood of a successful resuscitation in the event of a cardiopulmonary arrest is minimal and even then the outcome would be poor. (5) Multiple sclerosis exacerbation: Status: Ruled-out Asessment and Plan: No evidence of exacerbation as demonstrated by her current MRI findings and lack of significant elevation in her inflammatory markers. (6) Physical deconditioning: Status: Chronic Asessment and Plan: Is recommended that physical therapy initially follow her at home and work with her and her family to improve her strength and mobility to try to improve her baseline function. This will help assist the family in making safe transfers. (7) Palliative care patient: Status: Chronic Asessment and Plan: As noted above is recommended palliative care continue to follow patient work with the family towards goals of care and assist the family in coming up with a C.O.L.S.T. plan Discharge Plan Disposition Patient Disposition: HOME W/HOME HEALTH SERVICE Condition: Stable Discharge Details Reason For Visit: Multiple sclerosis flare Admit Date/Time: 01/28/21 15:03 Admit Provider: Abraham Simon Attending Provider: Abraham Simon Primary Care Provider: Karl Laird Hospital Course Hospital Course: 80-year-old female with history of multiple sclerosis, dementia, chronic physical deconditioning, dysphagia was brought to emergency department by her son because of concern of possible acute respiratory illness. Patient has been recently of had URI symptoms. Patient is fully vaccinated against COVID-19 receiving her third booster vaccine on the Tuesday prior to admission. She has had respiratory symptoms for the past 3 days along with chest congestion difficulty handling her secretions. She has dysphonia as well as dysphagia and has difficulty communicating. Evaluation emergency room included chest x-ray which showed no acute findings CT of the head showed no acute process. Electrolytes were normal BUN and creatinine were normal. TSH was less than 0.01 however she has history of hypothyroidism and is on thyroid replacement. She may be getting too much replacement this time. She was admitted as a possible flareup of her MS and therefore an MRI scan of her brain was ordered and she was started on high-dose Solu-Medrol 1 g. Speech therapy, physical therapy, and neurology were consulted. Occupational Therapy was also consulted. Please see their notes for details. Speech therapist recommendations would be that the patient could be nefit from home health [facility] services in order to provide additional assessment management as well as education to the patient and family. They also recommend consideration of a modified barium swallow study but this would need to be per provided at [facility] because the patient is need for special video imaging chair for proper transport and position of the patient due to her debilitation. They did recommend one-to-one feeding assist for safe swallowing strategies. They recommended mildly thickened liquids to nectar consistency during mealtimes and to continue on a pur?ed diet. Physical therapy's recommendation was that she demonstrates limited activity tolerance and global weakness but patient was able to complete stand pivot transfer on the day of discharge but required frequent cueing for safety and transfers. They recommend continued home physical therapy for global strengthening and general conditioning to maximize her baseline function and to maximize family's safe transfer the patient. Occupational Therapy saw her on the day of discharge and their assessment was incomplete because they were unable to reach out to the family members to assess what her baseline level of function has been. OT did recommend [facility] facility for continued care however this is contrary to the family's wishes to keep her at home. Patient was continued on Solu- Medrol 1 g daily through the weekend of January 31 and . Patient did seem to show some improvement in terms of her alertness and interaction with the staff as well as improvement in her swallowing. We did not witness any aspiration events during her feedings. Serial CBC labs were done and she had no leukocytosis to suggest any infection. Patient had a mild elevation of her CRP of 0.9 with a normal ferritin level was 77. As previously mentioned her TSH was quite suppressed at less than 0.01 is recommended that her PCP address this with a decrease in her levothyroxine dose. The rest of her labs were fairly unremarkable with normal electrolytes and kidney and liver function testing. Her CBC showed no anemia. Chest x-ray on admission showed no acute pulmonary process. She has thoracic scoliosis. Noncontrast CT scan of her head showed no evidence of an acute intracranial process. She has generalized cerebral atrophy with patchy areas of decreased attenuation in the periventricular white matter consistent with microvascular ischemic disease. Her MRI scan of the brain showed interval worsening in the white matter lesions in the scattered periventricular distribution bilaterally. No restricted diffusion defects were seen. There is no lesion enhancement. Based on this was felt that the patient did not have a flareup of her MS. Her neurologist Dr. Patti Brito was consulted and saw on the day of discharge and felt that the patient was not having an MS flare and recommended discontinuation of Solu-Medrol. Palliative care consult was obtained with Dr. Katya Boykin who saw the patient on the day of discharge see her notes for recommendations. Home Meds and New Rx's Prescriptions: Continued aspirin [Aspir-81] 81 MG tablet,delayed release (DR/EC) 81 mg PO DAILY RF: 0 escitalopram oxalate [Lexapro] 10 mg tablet 10 mg PO DAILY Qty: 90 RF: 4 levothyroxine 50 mcg tablet 50 mcg PO DAILY Qty: 90 RF: 4 trazodone 50 mg tablet 25 - 50 mg PO QHS PRN (Reason: insomnia) Qty: 30 RF: 1 Discharge Instructions Instructions: Multiple Sclerosis (DC), Chronic Dysphagia (DC), Self-Care Measures with a Chronic Disease (DC), Aspiration Precautions (DC) Additional Instructions: You were evaluated for your dysphagia and for possible pneumonia. No pneumonia was found. You also were evaluated for possible flare of your multiple sclerosis. MRI scan demonstrated old MS plaques but no evidence of new changes. You were seen by a neurologist Dr. Patti Brito who reviewed your MRI and examined you and has determined that you have no evidence of acute MS flareup. She recommends continued home health services and our physical therapy services recommend the addition of home physical therapy to help your work with mobilizing you and to ensure safe transfers from the bed to a chair or from a bed to a wheelchair. Speech therapy services evaluate your dysphagia and they recommend that you remain on a pur?ed foods rather than solid foods and that your liquids should be mildly thickened and you should remain fully upright for all meals and all of your feeding should be supervised. Any medications you take whenever possible should be crushed and mixed with some pur?ed foods to facilitate swallowing. Please see speech therapies recommendations from their notes. Regarding recommend along with your home health services that you have additional services from speech therapy as well as physical therapy. Referrals: Karl Laird MD [Primary Care Provider] - Activity:: Activity as Tolerated Equipment/Supplies:: No Equipment Needed Diet:: dysphagia diet, see speech therapy notes Discharge Orders Discharge Orders: Discharge Order (Routine); Ordered 02/02/21 Ordered By: Dae Contreras DS: Summary Time Spent with Patient providing and/or coordinating discharge services: Less than 30 minutes Status at Discharge Functional status at discharge: bed bound Overall status at discharge: patient is back to baseline Mental Status: mental status grossly normal Speech and Movement: slowed movement and slurred speech Mood: congruent mood Affect: normal affect Exam Narrative Exam Narrative: alert and she seems to understand and able to communicate her wants/needs; she is hard of hearing however she also has cerumen impaction. She is receiving Debrox for this. Speech is difficult to understand. Lungs: some adventitious breath sounds that clears w/ cough and deep breathing Heart: RRR Abdomen: soft, nontender, nondistended, normal bowel sounds Psych Mental Status: mental status grossly normal Speech and Movement: slowed movement and slurred speech Mood: congruent mood Affect: normal affect DS: Data Vitals/I&O Vitals and I&O: Vital Signs Temperature 36.6 C 02/02/21 10:28 Temperature Source Tympanic 02/02/21 10:28 Pulse 81 02/02/21 10:28 Pulse Rhythm Regular 02/02/21 04:11 Pulse 78 01/28/21 14:31 Respiratory Rate 16 02/02/21 10:28 Respiratory Effort Non-Labored 02/02/21 04:11 Respiratory Depth Normal 02/02/21 04:11 Respiratory Pattern Normal 02/02/21 04:11 Blood Pressure 162/70 H 02/02/21 10:28 Blood Pressure Mean 98 01/28/21 14:30 Blood Pressure Position Sitting 01/28/21 11:50 Pulse Oximetry 96 02/02/21 10:28 Oxygen Delivery Method Room Air 02/02/21 10:28 Oxygen Flow Rate 0 02/02/21 10:28 Pain Level 0 02/02/21 03:50 Comment 01/30/21 16:10 Intake & Output 02/01/21 02/01/21 02/02/21 11:59 23:59 11:59 Intake Total 1120.000 / 1914.333 794.333 / 1914.333 Output Total 300 / 300 Balance 820.000 / 1614.333 794.333 / 1614.333 Weight 38.6 kg Intake: IV 1000.000 / 1719.333 719.333 / 1719.333 Oral 120 / 195 75 / 195 Output: Urine 300 / 300 Other: Urine Color Yellow Yellow Urine Appearance Clear Clear Clear Urine Odor Strong Normal Comment Patient continent of 100mL in bedside commode and incontinent into brief. large amount Stool Size Small Stool Characteristics Formed Brown Voiding Methods Bedside Commode Diaper Incontinent Diaper Incontinent Data Completed and Pending Labs on day of discharge: Labs from last 24 hours 02/01/21 06:16 ESR 10 Preliminary micro results at discharge 01/28/21 13:20 Blood Culture - Preliminary Blood NO GROWTH 96 HOURS 01/28/21 12:10 Blood Culture - Preliminary Blood NO GROWTH 96 HOURS [facility] Active Problem List Palliative care patient (Acute) DVT prophylaxis (Acute) Discharge planning issues (Acute) Cough (Acute) Cerumen impaction (Acute) Decubitus ulcer (Acute) Failure to thrive (Acute) Sacral decubitus ulcer (Acute) Multiple sclerosis exacerbation (Acute) Pressure sore of hip, right, unstageable (Acute) Physical deconditioning (Acute) Abnormal auditory perception (Acute) Sensory hearing loss, bilateral (Acute) Multiple sclerosis (Acute) Dysphagia, neurologic (Acute) Hypothyroidism (Acute) Essential hypertension (Acute 03/19/13) Polyp of colon (Acute) History of blood transfusion (Acute) Depressive disorder (Acute) Memory loss (Acute) Medical History Atelectasis of left lung Choking due to foreign body Surgical History S/P neck surgery, follow-up exam Total replacement of hip (~09/2010) transfusion (~1992) Family History Mother , 93 Essential hypertension Father , 96 No problems noted. Maternal Grandfather , 80 No problems noted. Paternal Grandfather , 80 No problems noted. Maternal Grandmother , 92 Cancer Paternal Grandmother , 85 No problems noted. Son Heart disease Son No problems noted. Son No problems noted. Brother , age 74 No problems noted. Social History Smoking/Tobacco Use Status: Former Tobacco Use Quit Date: 03/07/1959 Tobacco: How many years used: 2 Smoking risk assessment performed?: Yes Alcohol Intake: current Alcohol Intake frequency: 0-2 drinks per day Alcohol type: beer and wine Drug use: Never Substance use type: does not use Counseling provided: none Caregiver/Support person: Yes Household members: spouse Communication Needs: Corrective Lenses Do you need help understanding health information?: Rarely Pets and animals: Yes Sexually active: No Do you think of yourself as: straight/heterosexual Current gender identity: female and decline to answer What is your relationship status?: How often do you talk on the phone with friends or family?: once per week How often do you get together with friends or relatives?: decline to answer How often do you attend samaritan or taoism services?: decline to answer Do you belong to any clubs or organized social groups?: decline to answer Panel score (0-1 are the most socially isolated patients): 1 What type of physical activity do you participate in: decline to answer Duration: decline to answer Frequency: decline to answer Arline/Anabaptist: No preference Special arline needs: No Seatbelt use: always Helmet use: No Drive intox or ride w/intox 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
--- NOTE | 2021-02-02 11:59 | PDOC.HHF2F_ITS ---
Home Health Certification Home Health Certification: 1. Encounter Date and Reason I certify that Ron Alarcon was seen by Dae Contreras on 02/02/21 and that I had a [id number] encounter with this patient that meets the physician face to face encounter requirements. 2. Clinical Findings Supporting Skilled Need and Homebound Status I certify that home health services are medically necessary, include either intermittent [place] [facility] and/or physical/speech therapy, and that this pat ient is homebound in that absences from the home require considerable and taxing effort and are infrequent or of short duration, or are attributable to the need to receive medical care. [X] (a) Attached documentation from encounter provides clinical findings supporting skilled need and homebound status (including what assistance patient requires to leave the home). The encounter with the patient was in whole, or in part, for the following medical condition, which is the primary reason for home health care: Multiple sclerosis flare Chcf: Resume home health services with the addition of speech therapy and physical therapy. Patient's dementia and MS have led to her physical decline necessitating [place] [facility] to monitor her and to assist her primary care providers and coordination of services and arranging follow-up. Physical Therapy: Physical therapy to work with family in providing the safest means of transferring the patient to be in the bed in her chair including transfers in and out of her wheelchair. Physical therapy to continue working with the patient to improve her strength and mobility. Speech Therapy: Speech therapy to continue working with the patient and her family to improve her swallowing and providing the safest means of oral nutrition. At present time patient is on a pur?ed diet along with mildly thickened liquids. Please see consultation notes from the in-hospital MANAGER OF DISTRIBUTION. Homebound: Patient's immobility due to her multiple sclerosis and dementia make the patient homebound and make it not safe for her to receive medical services outside her home. 3. Certification and Authentication I certify that I composed the above information based on my clinical judgement relating to this patient's medical condition and, if applicable, clinical findings communicated to me by the NPP or inpatient physician who performed the Home Health Referral. All further orders will be obtained through ___Karl Laird (Community Based Physician - PCP)
--- NOTE | 2021-02-02 17:52 | PT.INTREAT ---
Date of service: 02/03/21 Time of Service: 08:49 PT Notes Visit Reasons: Multiple sclerosis flare Inpatient Physical Therapy Treatment Note [facility] Date: 02/02/2021 PRECAUTIONS: Activity as Tolerated, non-ambulatory SUBJECTIVE: Ron indicates that she is agreeable to participating in PT. OBJECTIVE: PAIN: No c/o pain BED MOBILITY/TRANSFERS/GAIT: Not assessed THEREX: Patient was instructed in a seated LE and UE strengthening program, as per flow sheet. She requires assist due to global weakness due to chronic MS. ASSESSMENT: Patient requires assist with most LE exercises completed in a seated position. She continues to demonstrate global weakness, which appears to be patient's baseline due to chronic MS. PLAN: Patient to discharge to home with 27/09 care, as per provider. Recommend follow up with PT for continued global strengthening and patient centered care specialist training for safety with transfers. TREATMENT CODE/TIME: 24 minutes; 45380 x2 (08:49)
--- NOTE | 2021-02-02 18:17 | PDOC.CMDIS ---
- If Service Date Differs Date of service: 02/02/21 Time of Service: 18:17 LACE Index Scoring Tool - Questions: Length of Stay (in days): 4 - 6 Acuity (Admit via E.D.?): Yes Comorbidities: Connective Tissue Disease E.D. Visits: 1 - Answers: Total Score: 11 Risk of Readmission: High Risk Care Management Discharge Reason for Hospitalization: MS flare Discharge Plan: Discharged home with resumption of [facility] SN, add PT via private vehicle with family. She will follow up with her community providers and discharge plan of care. Patient/Family Education Needs: Review discharge instructions, limitations and plan to follow up with community providers. ask me three. Services Needed at Discharge: Home Health Care Services (Resume [facility], add PT (face to face faxed to [facility]))
--- NOTE | 2021-02-04 09:41 | PT.INDS ---
Date of service: 02/04/21 Time of Service: 09:41 PT Notes Visit Reasons: Multiple sclerosis flare Physical Therapy Inpatient Discharge Summary Date:02/04/2021 Dates of Service: 01/31/2021 through 02/02/2010 This is a clinical summary of care provided for the duration of dates listed above. No charge was made in the completion of this documentation. Referring Doctor: Abraham Simon PT Orders: PT CONSULT: Evaluate and Treat Precautions: Standard Patient Profile/Admitting Diagnosis: Orders received for this 80-year-old female with a history of multiple sclerosis. Patient has been admitted due to an exacerbation of this MS diagnosis. Patient was found to have increased difficulty with secretions, increased dysphagia, and weakness. SHe has been admitted for medical management. PMHX: Active Problem List Pressure sore of hip, right, unstageable (Acute) Physical deconditioning (Acute) Abnormal auditory perception (Acute) Sensory hearing loss, bilateral (Acute) Multiple sclerosis (Acute) Dysphagia, neurologic (Acute) Hypothyroidism (Acute) Essential hypertension (Acute 03/19/13) Polyp of colon (Acute) History of blood transfusion (Acute) Depressive disorder (Acute) Memory loss (Acute) Medical History Atelectasis of left lung Cerumen impaction Choking due to foreign body Surgical History S/P neck surgery, follow-up exam Total replacement of hip (~09/2010) transfusion (~1992) Social History/Home Situation: Lives at home with her Equipment Owned/DME: Patient has multiple items of equipment at home per case management. Subjective: NT. See most recent CERTIFIED TRAVEL COUNSELOR notes. Objective: NT. See most recent CERTIFIED TRAVEL COUNSELOR notes. Mental Status: NT. See most recent CERTIFIED TRAVEL COUNSELOR notes. Pain: NT. See most recent CERTIFIED TRAVEL COUNSELOR notes. ROM: Right Upper Extremity: Limited to 90 degrees of shoulder flexion bilaterally, elbow ROM intact Left Upper Extremity: Limited to 90 degrees of shoulder flexion bilaterally, elbow ROM intact Right Lower Extremity: Hip flexion to 100 degrees bilaterally, KNee extension appears to lack about 20 degrees, knee flexion to 120, ankle plantar flexion to 45 degrees and ankle dorsiflexion to neutral Left Lower Extremity: Hip flexion to 100 degrees bilaterally, KNee extension appears to lack about 20 degrees, knee flexion to 120, ankle plantar flexion to 45 degrees and ankle dorsiflexion to neutral Strength: Right Upper Extremity: Globally 4/5 through upper extremities Left Upper Extremity: Globally 4/5 through upper extremities Right Lower Extremity: Globally 4-/5 through lower extremities Left Lower Extremity: Globally 4-/5 through lower extremities Bed Mobility/Transfers: With moderate assistance patient is able to roll Supine-sit: Minimal assist Sit-stand: maximal assist Stand-sit: maximal assist Bed-chair: maximal assist using stand-pivot only Gait: Non-ambulatory Balance: Static Sitting: Fair Dynamic Sitting: Fair Static Standing:Poor Dynamic Standing: Poor ASSESSMENT: Patient continues to demonstrate functional mobility dependence and will require SNF placement for mobility ADL progression prior to going home. Goals: Goals X1 week 1. Supine-Sit Min Assistance NOT MET 2. Sit-Supine Min Assistance NOT MET 3. Sit-Stand Moderate assistance NOT MET 4. Stand-Sit Moderate assistance NOT MET DISCHARGE RECOMMENDATIONS: ( ) Home with no services ( ) Home with services [specify] ( ) Home with outpatient PT (X ) SNF for continued rehabilitation. Patient will benefit from half-way facility placement for continued skilled physical therapy services in order to progress mobility level, strength, and balance in preparation for a safe discharge to home. ( ) [facility] ( ) SNF versus LTC based on ability to participate and progress TREATMENT CODE/TIME: CALLI Thank you for the opportunity to participate in the care of this patient. Judy Carl PT, DPT, CLT [facility] [place], [place]
== END 2021-02-02 13:33 | disposition home health service (06) | DRG 59 ==
LOC: ER 15:35 → MS 01-30 08:44
PROVIDERS: Internal Medicine; Admitting Provider Family Medicine; Emergency Provider Student in an Organized Health Care Education/Training Program; PCP Family Medicine; Visit Provider Family Medicine
DX: G35 Multiple sclerosis (principal); R64 Cachexia; Z68.1 Body mass index [BMI] 19.9 or less, adult; I10 Essential (primary) hypertension; F32.A Depression, unspecified; E03.9 Hypothyroidism, unspecified; R53.81 Other malaise; Z87.891 Personal history of nicotine dependence; Z96.649 Presence of unspecified artificial hip joint; L89.152 Pressure ulcer of sacral region, stage 2; R13.19 Other dysphagia; Z20.822 Contact with and (suspected) exposure to COVID-19; R05.8 Other specified cough
CPT/HCPCS: 36415; 70553; 80048; 80053; 85027; 85652; 86850; 86900; 86901; 87040; 87635; 92526; 96365; 97110; 97163; 97166; 97530; 97535; 99222; 99285; J1650; 70450; 71045; 81003; 81015; 82728; 83735; 84100; 84443; 84484; 85025; 85379; 86140; 99223; 99232; 99233; 99238; J2930; J3490

== ENCOUNTER 2021-03-25 15:01 | Outpatient (REF) | payer MEDICARE, SELFPAY ==
[2021-03-27 13:15] LABS: Lab Add On Test DONE
== END 2021-03-25 15:02 | disposition home or self-care (01) ==
LOC: LBN 15:01
PROVIDERS: PCP Family Medicine; Visit Provider Family Medicine
DX: E03.9 Hypothyroidism, unspecified (principal)
CPT/HCPCS: 84439; 84443